=== PATIENT | male | born 1955 | race Caucasian/White ===

== ENCOUNTER 2017-06-17 15:16 | Inpatient (IN) | payer MEDICAID ==
[~2017-06-17] VITALS: Ht 172.7 cm; Wt 91.1 kg
[~2017-06-17 15:16] MED LIST: ATOR40TA PO; ATOR40TA71 PO; BUPR300T53 PO; DILT240C52 PO; EZET10TA14 PO; GABA-532 PO; LISI10TA4 PO; METF500T7 PO; METO50TA7 PO; SITA100T11 PO
[2017-06-17 15:59] LABS: HEMATOCRIT 42.5 % (42.0-52.0); HEMOGLOBIN 14.2 g/dl (14.0-17.9); MEAN CORPUSCULAR HGB CONC 33.4 % (33.0-36.5); MEAN CORPUSCULAR VOLUME 95.7 FL (78-98); PLATELET COUNT 142 X10'3 (140-440); RED BLOOD COUNT 4.44 X10'6 (4.70-6.10); RED CELL DISTRIBUTION WIDTH 16.5 % (11.5-14.5); WHITE BLOOD COUNT 15.5 X10'3 (4.5-11.0)
[2017-06-17 16:03] LABS: TOTAL CELLS COUNTED 100
[2017-06-17 16:04] LABS: ANISOCYTOSIS 1+; PLATELET ESTIMATE NORMAL; POIKILOCYTOSIS FEW; POLYCHROMASIA FEW; ROULEAUX 1+; TOXIC GRANULATION 2+; TOXIC VACUOLATION 2+
[2017-06-17] MEDS ORDERED: aspirin 300mg supp.rect RC ONE ×2 (16:45→17:10)
[2017-06-17] MEDS ORDERED: normal saline 1000ml 1,000 ML IV ONE ×2 (16:45)
[2017-06-17 16:48] LABS: INR 1.5 INR; PARTIAL THROMBOPLASTIN TIME 34 SECONDS (22-32); PROTHROMBIN TIME 15.2 SECONDS (9.0-12.0)
[2017-06-17 16:53] LABS: ALANINE AMINOTRANSFERASE 145 U/L (12-78); ALBUMIN 1.8 G/DL (3.4-5.0); ALBUMIN/GLOBULIN RATIO 0.3 (1.1-1.5); ALKALINE PHOSPHATASE 102 IU/L (46-116); ANION GAP 21 (8-16); ASPARTATE AMINO TRANSFERASE 347 U/L (10-37); BILIRUBIN,TOTAL 1.1 MG/DL (0.1-1.0); BLOOD UREA NITROGEN 133 MG/DL (7-18); BUN/CREATININE RATIO 15.7 (5.4-32.0); CALCIUM 8.7 MG/DL (8.5-10.1); CHLORIDE 103 MMOL/L (99-107); CREATININE 8.45 MG/DL (0.60-1.10); GLUCOSE 265 MG/DL (70-104); POTASSIUM 3.8 MMOL/L (3.5-5.1); SODIUM 145 MMOL/L (135-145); TOTAL CARBON DIOXIDE 21.4 MMOL/L (24-32); TOTAL PROTEIN 7.4 G/DL (6.4-8.2); eGFR 6 ML/MIN
[2017-06-17 17:04] LABS: ACETAMINOPHEN < 2.0 UG/ML (10-30); CKMB RELATIVE INDEX 0.3 RATIO (0-2.5); CREATINE KINASE 1529 U/L (39-308); ETHANOL < 0.010 GM/DL (0.0-0.010)
[2017-06-17] MEDS ORDERED: piperacillin/tazo 3.375gm/50ml 50 ML IV ONE (17:05)
[2017-06-17] MEDS ORDERED: vancomycin/NS 1 GM ADD-VANTAGE 250 ML IV ONE ×2 (17:05→17:10)
[2017-06-17] MEDS ORDERED: heparin 10,000 units/1 ML INJ IV ONE ×2 (17:10→17:45)
[2017-06-17] MEDS ORDERED: normal saline 1000ML IV soln IV ONE (17:10)
[2017-06-17] MEDS: piperacillin/tazo 3.375gm/50ml 50 ML IV ONE ×2 (17:34→19:14)
[2017-06-17] MEDS ORDERED: heparin 10,000 units/1 ML INJ IV PRN (17:45)
[2017-06-17 18:20] LABS: OCCULT BLOOD STOOL NEGATIVE (Neg)
[2017-06-17] MEDS ORDERED: normal saline 1000ML IV soln IVB ONE (18:45)
[2017-06-17] MEDS ORDERED: acetaminophen 650mg rectal suppository RC ONE (19:25)
[2017-06-17] MEDS ORDERED: potassium Cl 40MEQ/250ML bag 250 ML IV SCH (20:05)
[2017-06-17] MEDS: K, MAG and/or Phos replacement - Verify level? MC SCH (20:05)
[2017-06-17] MEDS ORDERED: potassium Cl 20 mEq SR tablet PO PRN ×2 (20:05)
[2017-06-17] MEDS ORDERED: acetaminophen 650mg rectal suppository RC PRN (20:05)
[2017-06-17] MEDS ORDERED: potassium Cl 40MEQ/250ML bag 250 ML IV PRN (20:05)
[2017-06-17] MEDS ORDERED: acetaminophen 325mg tablet PO PRN (20:05)
[2017-06-17 20:19] LABS: CLARITY,URINE CLOUDY (Clear); COLOR,URINE AMBER (Yellow); GLUCOSE, URINE NEGATIVE (Neg); KETONES,URINE NEGATIVE (Neg); LEUKOCYTE ESTERASE ,URINE NEGATIVE (Neg); NITRITES, URINE NEGATIVE (Neg); OCCULT BLOOD,URINE LARGE (Neg); PH,URINE 5.5 (4.8-8.0); PROTEIN,URINE >=300 mg/dl (Neg); UROBILINOGEN,URINE 0.2 E.U/dL (0.2-1.0)
[2017-06-17 20:20] LABS: URINE AMPHETAMINE SCREEN NEGATIVE (Neg); URINE BARBITUATE SCREEN NEGATIVE (Neg); URINE BENZODIAZEPINES SCREEN NEGATIVE (Neg); URINE CANNABINOID SCREEN POSITIVE (Neg); URINE COCAINE SCREEN NEGATIVE (Neg); URINE METHADONE SCREEN NEGATIVE (Neg); URINE OPIATE SCREEN NEGATIVE (Neg); URINE PHENCYCLIDINE SCREEN NEGATIVE (Neg)
[2017-06-17 20:23] LABS: UA COLLECTION TYPE FOLEY CATH
[2017-06-17 20:30] LABS: AMORPHOUS URATES 2+; FINE GRANULAR CAST 0-3 /LPF (NEGATIVE); WAXY CASTS,URINE 0-3 /LPF (NEGATIVE)
[2017-06-17 20:32] LABS: BACTERIA,URINE NONE SEEN /HPF (Neg); MUCUS STRANDS MODERATE /LPF (Neg); RBC,URINE 0-2 /HPF (0-2); SQUAMOUS EPITHELIAL CELL,UR NONE SEEN /LPF (FEW); WBC,URINE 0-4 /HPF (0-4)
[2017-06-17] MEDS: normal saline 1000ml 1,000 ML IV SCH ×2 (21:41→22:28)
[2017-06-17 22:00] VITALS: BP 91/49
[2017-06-17 23:00] LABS: OXYGEN SATURATION (MIXED VEN) 61.9 % (60-80); PO2 MIXED VENOUS (TEMP COR) 40.9 mmHg (35-46)
[2017-06-17] MEDS ORDERED: NORepinephrine 8mg/ 250ml NS 250 ML IV SCH (23:15)
[2017-06-17 23:20] VITALS: BP 79/47
[2017-06-17 23:22] LABS: BASOPHILS % (AUTO) 0 % (0-1); EOSINOPHILS % (AUTO) 0.3 % (0-6); HEMATOCRIT 31.1 % (42.0-52.0); HEMOGLOBIN 10.4 g/dl (14.0-17.9); LYMPHOCYTES # (AUTO) 0.3 X10'3 (1.1-4.8); LYMPHOCYTES % (AUTO) 2.5 % (21-51); MEAN CORPUSCULAR HGB CONC 33.3 % (33.0-36.5); MEAN CORPUSCULAR VOLUME 96.1 FL (78-98); MONOCYTES % (AUTO) 0.3 % (2-12); NEUTROPHILS # (AUTO) 10.1 X10'3 (1.8-7.7); NEUTROPHILS % (AUTO) 96.9 % (42-75); PLATELET COUNT 110 X10'3 (140-440); RED BLOOD COUNT 3.24 X10'6 (4.70-6.10); RED CELL DISTRIBUTION WIDTH 16.8 % (11.5-14.5); WHITE BLOOD COUNT 10.4 X10'3 (4.5-11.0)
[2017-06-17 23:28] LABS: CHLORIDE 112 MMOL/L (99-107); GLUCOSE 162 MG/DL (70-104); POTASSIUM 3.3 MMOL/L (3.5-5.1); SODIUM 146 MMOL/L (135-145)
[2017-06-17 23:29] LABS: ALANINE AMINOTRANSFERASE 624 U/L (12-78); ALBUMIN 1.3 G/DL (3.4-5.0); ALBUMIN/GLOBULIN RATIO 0.3 (1.1-1.5); ALKALINE PHOSPHATASE 175 IU/L (46-116); ANION GAP 16 (8-16); BILIRUBIN,TOTAL 1.5 MG/DL (0.1-1.0); BLOOD UREA NITROGEN 131 MG/DL (7-18); BUN/CREATININE RATIO 16.5 (5.4-32.0); CALCIUM 7.4 MG/DL (8.5-10.1); CREATININE 7.92 MG/DL (0.60-1.10); TOTAL CARBON DIOXIDE 18.5 MMOL/L (24-32); TOTAL PROTEIN 5.6 G/DL (6.4-8.2); eGFR 7 ML/MIN
[2017-06-17 23:33] LABS: CREATINE KINASE 2014 U/L (39-308)
[2017-06-17 23:41] LABS: ABG BASE EXCESS -12.7 mmol/L (-2.0-3.0); ABG HCO3 11.3 mmol/L (22.0-26.0); ABG OXYGEN SATURATION 95.9 % (95-98); ABG PCO2 (T) 24.1 mmHg (35.0-48.0); ABG PH (T) 7.301 (7.350-7.450); ABG PO2 (T) 110.8 mmHg (83-108); ALLEN'S TEST Positive; FCOHb 0.2 % (0.5-1.5); FLOW 2 L/min; FMetHb 0.3 % (0.3-1.12); FO2Hb 95.4 % (94-100); PATIENT TEMPERATURE 39.3; TOTAL HEMOGLOBIN 11.1 G/dl (14.0-18.0)
[2017-06-17 23:49] LABS: ASPARTATE AMINO TRANSFERASE 2309 U/L (10-37)
[2017-06-18] VITALS (24 sets, daily range): BP systolic 85–139; BP diastolic 47–91
[2017-06-18] MEDS ORDERED: sodium bicarbonate (8.4%) 1 mEq/ml syringe ONE ×2 (00:09→03:30)
[2017-06-18] MEDS: sodium bicarbonate (8.4%) inj. 150 MEQ in dextrose 5%-water 1,000 ML IV SCH ×4 (00:29→23:10)
[2017-06-18] MEDS ORDERED: piperacillin-tazo 2.25gm/50ml 50 ML IV ONE (01:42)
[2017-06-18] MEDS: piperacillin-tazo 2.25gm/50ml 50 ML IV SCH ×2 (01:49→07:56)
[2017-06-18 02:27] LABS: BASOPHILS % (AUTO) 0 % (0-1); EOSINOPHILS % (AUTO) 0.1 % (0-6); HEMATOCRIT 29.6 % (42.0-52.0); HEMOGLOBIN 9.9 g/dl (14.0-17.9); LYMPHOCYTES # (AUTO) 0.4 X10'3 (1.1-4.8); LYMPHOCYTES % (AUTO) 1.8 % (21-51); MEAN CORPUSCULAR HEMOGLOBIN 32.3 PG (27.0-31.0); MEAN CORPUSCULAR HGB CONC 33.4 % (33.0-36.5); MEAN CORPUSCULAR VOLUME 96.7 FL (78-98); MEAN PLATELET VOLUME 10.5 FL (7.4-10.4); MONOCYTES # (AUTO) 0.1 X10'3 (0-0.9); MONOCYTES % (AUTO) 0.5 % (2-12); NEUTROPHILS # (AUTO) 20.9 X10'3 (1.8-7.7); NEUTROPHILS % (AUTO) 97.6 % (42-75); PLATELET COUNT 116 X10'3 (140-440); RED BLOOD COUNT 3.06 X10'6 (4.70-6.10); RED CELL DISTRIBUTION WIDTH 17.1 % (11.5-14.5); WHITE BLOOD COUNT 21.4 X10'3 (4.5-11.0)
[2017-06-18 02:55] LABS: ALANINE AMINOTRANSFERASE 799 U/L (12-78); ALBUMIN 1.3 G/DL (3.4-5.0); ALBUMIN/GLOBULIN RATIO 0.3 (1.1-1.5); ALKALINE PHOSPHATASE 182 IU/L (46-116); ANION GAP 17 (8-16); BILIRUBIN,TOTAL 1.8 MG/DL (0.1-1.0); BLOOD UREA NITROGEN 134 MG/DL (7-18); BUN/CREATININE RATIO 15.9 (5.4-32.0); CALCIUM 7.3 MG/DL (8.5-10.1); CHLORIDE 114 MMOL/L (99-107); CREATININE 8.41 MG/DL (0.60-1.10); GLUCOSE 143 MG/DL (70-104); MAGNESIUM 2.2 MG/DL (1.5-2.4); PHOSPHORUS 3.5 MG/DL (2.3-4.5); POTASSIUM 3.3 MMOL/L (3.5-5.1); SODIUM 149 MMOL/L (135-145); TOTAL CARBON DIOXIDE 17.7 MMOL/L (24-32); TOTAL PROTEIN 5.5 G/DL (6.4-8.2); eGFR 6 ML/MIN
[2017-06-18 03:10] LABS: ASPARTATE AMINO TRANSFERASE 3198 U/L (10-37)
[2017-06-18] MEDS ORDERED: sodium bicarbonate (8.4%) 1 mEq/ml syringe IV ONE (03:25)
[2017-06-18] MEDS ORDERED: vancomycin/NS 1 GM ADD-VANTAGE 250 ML IV PRN (06:50)
[2017-06-18] MEDS: K, MAG and/or Phos replacement - Verify level? MC SCH (06:57)
[2017-06-18 07:03] LABS: VANCOMYCIN,RANDOM 13.5 UG/ML
[2017-06-18 07:24] LABS: ANISOCYTOSIS 2+; PLATELET ESTIMATE DECREASED; TOTAL CELLS COUNTED 100
[2017-06-18 07:25] LABS: BURR CELLS 2+; ROULEAUX 1+; TOXIC GRANULATION 3+; TOXIC VACUOLATION 2+
[2017-06-18] MEDS: pantoprazole 40 MG vial IV SCH (07:55)
[2017-06-18] MEDS: K and/or MAG REPLACEMENT MC SCH (08:00)
[2017-06-18 08:50] LABS: ALANINE AMINOTRANSFERASE 833 U/L (12-78); ALBUMIN 1.2 G/DL (3.4-5.0); ALBUMIN/GLOBULIN RATIO 0.3 (1.1-1.5); ALKALINE PHOSPHATASE 177 IU/L (46-116); ANION GAP 17 (8-16); BILIRUBIN,TOTAL 2.4 MG/DL (0.1-1.0); BLOOD UREA NITROGEN 140 MG/DL (7-18); CALCIUM 7.1 MG/DL (8.5-10.1); CHLORIDE 109 MMOL/L (99-107); CREATININE 8.22 MG/DL (0.60-1.10); GLUCOSE 236 MG/DL (70-104); POTASSIUM 3.5 MMOL/L (3.5-5.1); SODIUM 147 MMOL/L (135-145); TOTAL CARBON DIOXIDE 20.8 MMOL/L (24-32); TOTAL PROTEIN 5.5 G/DL (6.4-8.2); eGFR 7 ML/MIN
[2017-06-18 08:52] LABS: CREATINE KINASE 2482 U/L (39-308)
[2017-06-18] MEDS ORDERED: vancomycin/NS 1 GM ADD-VANTAGE 250 ML IV ONE (09:00)
[2017-06-18 09:18] LABS: ASPARTATE AMINO TRANSFERASE 3112 U/L (10-37)
[2017-06-18] MEDS ORDERED: potassium Cl 40MEQ/250ML bag 250 ML IV PRN ×2 (09:55)
[2017-06-18] MEDS ORDERED: dextrose 50%-water 50ml dispensing syringe IV PRN ×2 (09:55)
[2017-06-18] MEDS ORDERED: glucagon, human recombinant 1mg kit SUBCUT PRN (09:55)
[2017-06-18] MEDS ORDERED: potassium Cl 20 mEq SR tablet PO PRN ×2 (09:55)
[2017-06-18] MEDS ORDERED: dextrose ORAL solution 15 GM/59 ML bottle PO PRN (09:55)
[2017-06-18] MEDS ORDERED: albumin (human) 25% 100 ML IV solution IV ONE (09:55)
[2017-06-18] MEDS: normal saline 1000ml 1,000 ML IV SCH ×3 (10:12→20:47)
[2017-06-18 11:04] LABS: PARTIAL THROMBOPLASTIN TIME 84 SECONDS (22-32)
[2017-06-18 11:06] LABS: CREATININE,URINE RANDOM 143.1 MG/DL; TOTAL PROTEIN,URINE RANDOM 435.9 MG/DL
[2017-06-18] MEDS: linezolid 600mg/300ml PREMIX 300 ML IV SCH ×2 (12:56→20:15)
[2017-06-18] MEDS: insulin Lispro (HumaLOG) vial - multi-dose SQ SCH (14:48)
[2017-06-18] MEDS: albumin (human) 25% 100 ML IV solution IV SCH ×2 (17:54→23:11)
[2017-06-18 19:34] LABS: PARTIAL THROMBOPLASTIN TIME 74 SECONDS (22-32)
[2017-06-18] MEDS: Insulin Detemir pen SQ SCH (20:17)
[2017-06-19] VITALS (24 sets, daily range): BP systolic 95–135; BP diastolic 57–83
[2017-06-19] MEDS: insulin Lispro (HumaLOG) vial - multi-dose SQ SCH ×4 (01:16→21:16)
[2017-06-19 01:32] LABS: ALANINE AMINOTRANSFERASE 415 U/L (12-78); ALBUMIN/GLOBULIN RATIO 0.6 (1.1-1.5); ALKALINE PHOSPHATASE 147 IU/L (46-116); ANION GAP 12 (8-16); ASPARTATE AMINO TRANSFERASE 777 U/L (10-37); BILIRUBIN,TOTAL 3.3 MG/DL (0.1-1.0); BLOOD UREA NITROGEN 133 MG/DL (7-18); BUN/CREATININE RATIO 17.3 (5.4-32.0); CALCIUM 6.7 MG/DL (8.5-10.1); CHLORIDE 105 MMOL/L (99-107); CREATININE 7.69 MG/DL (0.60-1.10); GLUCOSE 225 MG/DL (70-104); MAGNESIUM 2.1 MG/DL (1.5-2.4); PHOSPHORUS 3.5 MG/DL (2.3-4.5); POTASSIUM 3.2 MMOL/L (3.5-5.1); SODIUM 145 MMOL/L (135-145); TOTAL CARBON DIOXIDE 28.2 MMOL/L (24-32); TOTAL PROTEIN 5.3 G/DL (6.4-8.2); VANCOMYCIN,RANDOM 24.7 UG/ML; eGFR 7 ML/MIN
[2017-06-19 02:10] LABS: BASOPHILS % (AUTO) 0 % (0-1); EOSINOPHILS # (AUTO) 0.1 X10'3 (0-0.9); EOSINOPHILS % (AUTO) 0.6 % (0-6); HEMATOCRIT 25.2 % (42.0-52.0); HEMOGLOBIN 8.6 g/dl (14.0-17.9); LYMPHOCYTES # (AUTO) 0.9 X10'3 (1.1-4.8); LYMPHOCYTES % (AUTO) 5.3 % (21-51); MEAN CORPUSCULAR HEMOGLOBIN 32.5 PG (27.0-31.0); MEAN CORPUSCULAR HGB CONC 34.1 % (33.0-36.5); MEAN CORPUSCULAR VOLUME 95.4 FL (78-98); MEAN PLATELET VOLUME 10.4 FL (7.4-10.4); MONOCYTES # (AUTO) 0.1 X10'3 (0-0.9); MONOCYTES % (AUTO) 0.6 % (2-12); NEUTROPHILS # (AUTO) 15.8 X10'3 (1.8-7.7); NEUTROPHILS % (AUTO) 93.5 % (42-75); PLATELET COUNT 81 X10'3 (140-440); RED BLOOD COUNT 2.64 X10'6 (4.70-6.10); RED CELL DISTRIBUTION WIDTH 16.7 % (11.5-14.5); WHITE BLOOD COUNT 16.9 X10'3 (4.5-11.0)
[2017-06-19] MEDS: normal saline 1000ml 1,000 ML IV SCH ×3 (02:10→20:04)
[2017-06-19] MEDS ORDERED: potassium Cl 40MEQ/250ML bag 250 ML IV ONE (02:50)
[2017-06-19] MEDS ORDERED: VANCOMYCIN LEVEL IV SCH (03:00)
[2017-06-19 07:47] LABS: BANDS% (MANUAL) 16 % (0-10); LYMPHOCYTES % (MANUAL) 5 % (21-51); MONOCYTES % (MANUAL) 1 % (2-12); NEUTROPHILS % (MANUAL) 78 % (42-75); TOTAL CELLS COUNTED 100
[2017-06-19 07:48] LABS: ANISOCYTOSIS 1+; LARGE PLATELETS FEW; PLATELET ESTIMATE DECREASED; TOXIC GRANULATION 1+
[2017-06-19] MEDS: K, MAG and/or Phos replacement - Verify level? MC SCH (08:00)
[2017-06-19] MEDS: K and/or MAG REPLACEMENT MC SCH (08:00)
[2017-06-19] MEDS: linezolid 600mg/300ml PREMIX 300 ML IV SCH (08:10)
[2017-06-19] MEDS: pantoprazole 40 MG vial IV SCH (08:10)
[2017-06-19] MEDS: albumin (human) 25% 100 ML IV solution IV SCH (08:11)
[2017-06-19] MEDS: sodium bicarbonate (8.4%) inj. 150 MEQ in dextrose 5%-water 1,000 ML IV SCH ×3 (08:14→21:43)
[2017-06-19] MEDS ORDERED: mannitol 20% 250ml solution IV ONE (11:25)
[2017-06-19] MEDS ORDERED: epoetin 20,000 units/ml inj IV ONE (11:25)
[2017-06-19] MEDS ORDERED: heparin 1,000unit/ml 10ml vial 10 ML IV ONE (11:25)
[2017-06-19] MEDS ORDERED: normal saline 1000ml 250 ML IV PRN (11:25)
[2017-06-19] MEDS ORDERED: albumin (human) 25% 100ml IV 100 ML IV PRN (11:25)
[2017-06-19] MEDS ORDERED: heparin 1,000 units/ml 10ml inj HE ONE ×2 (11:30)
[2017-06-19] MEDS ORDERED: MANNITOL 20% IV ONE (11:50)
[2017-06-19] MEDS: gabapentin 300mg capsule PO SCH ×2 (12:24→20:05)
[2017-06-19] MEDS: piperacillin-tazo 2.25gm/50ml 50 ML IV SCH ×2 (12:35→20:04)
[2017-06-19] MEDS ORDERED: gelatin sponge, absorbable (Gelfoam 100) sponge TP ONE (17:25)
[2017-06-19] MEDS: Insulin Detemir pen SQ SCH (21:14)
[2017-06-20] VITALS (25 sets, daily range): BP systolic 84–157; BP diastolic 28–82
[2017-06-20 02:03] LABS: BASOPHILS % (AUTO) 0.2 % (0-1); EOSINOPHILS # (AUTO) 0.1 X10'3 (0-0.9); EOSINOPHILS % (AUTO) 0.8 % (0-6); HEMATOCRIT 26.4 % (42.0-52.0); HEMOGLOBIN 8.8 g/dl (14.0-17.9); LYMPHOCYTES % (AUTO) 7.3 % (21-51); MEAN CORPUSCULAR HEMOGLOBIN 32.1 PG (27.0-31.0); MEAN CORPUSCULAR HGB CONC 33.3 % (33.0-36.5); MEAN CORPUSCULAR VOLUME 96.1 FL (78-98); MEAN PLATELET VOLUME 11.2 FL (7.4-10.4); MONOCYTES # (AUTO) 0.1 X10'3 (0-0.9); NEUTROPHILS # (AUTO) 12.5 X10'3 (1.8-7.7); NEUTROPHILS % (AUTO) 90.7 % (42-75); PLATELET COUNT 73 X10'3 (140-440); RED BLOOD COUNT 2.75 X10'6 (4.70-6.10); RED CELL DISTRIBUTION WIDTH 16.5 % (11.5-14.5); WHITE BLOOD COUNT 13.8 X10'3 (4.5-11.0)
[2017-06-20 02:20] LABS: ALANINE AMINOTRANSFERASE 280 U/L (12-78); ALBUMIN 1.6 G/DL (3.4-5.0); ALBUMIN/GLOBULIN RATIO 0.4 (1.1-1.5); ALKALINE PHOSPHATASE 256 IU/L (46-116); ANION GAP 6 (8-16); ASPARTATE AMINO TRANSFERASE 333 U/L (10-37); BLOOD UREA NITROGEN 79 MG/DL (7-18); BUN/CREATININE RATIO 15.4 (5.4-32.0); CALCIUM 6.7 MG/DL (8.5-10.1); CHLORIDE 103 MMOL/L (99-107); CREATININE 5.13 MG/DL (0.60-1.10); GLUCOSE 126 MG/DL (70-104); MAGNESIUM 1.9 MG/DL (1.5-2.4); PHOSPHORUS 1.7 MG/DL (2.3-4.5); POTASSIUM 3.4 MMOL/L (3.5-5.1); SODIUM 142 MMOL/L (135-145); TOTAL CARBON DIOXIDE 33.3 MMOL/L (24-32); TOTAL PROTEIN 5.2 G/DL (6.4-8.2); VANCOMYCIN,RANDOM 16.6 UG/ML; eGFR 11 ML/MIN
[2017-06-20] MEDS: piperacillin-tazo 2.25gm/50ml 50 ML IV SCH ×4 (02:25→19:51)
[2017-06-20 03:09] LABS: ANISOCYTOSIS 1+; LARGE PLATELETS FEW; PLATELET ESTIMATE DECREASED; TOTAL CELLS COUNTED 100; TOXIC GRANULATION 1+
[2017-06-20] MEDS: normal saline 1000ml 1,000 ML IV SCH (03:36)
[2017-06-20] MEDS: sodium bicarbonate (8.4%) inj. 150 MEQ in dextrose 5%-water 1,000 ML IV SCH (05:16)
[2017-06-20] MEDS ORDERED: potassium Cl 40MEQ/250ML bag 250 ML IV ONE (05:19)
[2017-06-20] MEDS ORDERED: potassium Cl 20 mEq/100mL bag IV ONE (05:50)
[2017-06-20] MEDS ORDERED: lisinopril 10 MG tablet PO SCH (08:00)
[2017-06-20] MEDS: K and/or MAG REPLACEMENT MC SCH (08:00)
[2017-06-20] MEDS: K, MAG and/or Phos replacement - Verify level? MC SCH (08:00)
[2017-06-20] MEDS: sodium chloride 0.45% 1,000 ML IV SCH (08:11)
[2017-06-20] MEDS: pantoprazole 40 MG vial IV SCH (08:12)
[2017-06-20] MEDS: buPROPion SR 150mg tablet PO SCH (08:16)
[2017-06-20] MEDS: metoprolol succinate 25mg (24-HOUR) SR. Tablet PO SCH (08:18)
[2017-06-20] MEDS: ezetimibe 10mg tablet PO SCH (08:18)
[2017-06-20] MEDS: diltiazem CD 120mg capsule (once-daily) PO SCH (08:31)
[2017-06-20] MEDS: gabapentin 300mg capsule PO SCH ×2 (08:31→12:54)
[2017-06-20] MEDS: atorvastatin 20mg tablet PO SCH (08:31)
[2017-06-20] MEDS: LACTOBACILLUS RHAMNOSUS GG 15 billion unit sprinkle caps PO SCH (08:31)
[2017-06-20] MEDS: HYDROmorphone 1 mg/ml syringe IV PRN ×2 (08:59→23:02)
[2017-06-20] MEDS ORDERED: epoetin 20,000 units/ml inj IV ONE (09:00)
[2017-06-20] MEDS ORDERED: albumin (human) 25% 100ml IV 100 ML IV PRN (09:00)
[2017-06-20] MEDS ORDERED: heparin 1,000 units/ml 10ml inj HE ONE ×2 (09:05)
[2017-06-20 14:06] LABS: BASOPHILS % (AUTO) 0.1 % (0-1); EOSINOPHILS # (AUTO) 0.4 X10'3 (0-0.9); EOSINOPHILS % (AUTO) 3.2 % (0-6); HEMATOCRIT 26.8 % (42.0-52.0); LYMPHOCYTES # (AUTO) 1.3 X10'3 (1.1-4.8); LYMPHOCYTES % (AUTO) 10.2 % (21-51); MEAN CORPUSCULAR HEMOGLOBIN 32.2 PG (27.0-31.0); MEAN CORPUSCULAR HGB CONC 33.7 % (33.0-36.5); MEAN CORPUSCULAR VOLUME 95.6 FL (78-98); MEAN PLATELET VOLUME 10.5 FL (7.4-10.4); MONOCYTES # (AUTO) 0.1 X10'3 (0-0.9); MONOCYTES % (AUTO) 0.6 % (2-12); NEUTROPHILS # (AUTO) 10.7 X10'3 (1.8-7.7); NEUTROPHILS % (AUTO) 85.9 % (42-75); PLATELET COUNT 66 X10'3 (140-440); RED CELL DISTRIBUTION WIDTH 16.3 % (11.5-14.5); WHITE BLOOD COUNT 12.5 X10'3 (4.5-11.0)
[2017-06-20 14:27] LABS: ALBUMIN 1.5 G/DL (3.4-5.0); ANION GAP 2 (8-16); BLOOD UREA NITROGEN 39 MG/DL (7-18); CALCIUM 6.9 MG/DL (8.5-10.1); CHLORIDE 102 MMOL/L (99-107); GLUCOSE 101 MG/DL (70-104); POTASSIUM 4.4 MMOL/L (3.5-5.1); SODIUM 138 MMOL/L (135-145); TOTAL CARBON DIOXIDE 33.7 MMOL/L (24-32); eGFR 21 ML/MIN
[2017-06-20 14:31] LABS: TROPONIN I 0.35 NG/ML (0.0-0.05)
[2017-06-20] MEDS ORDERED: albumin (human) 25% 100 ML IV solution IV ONE (16:30)
[2017-06-20] MEDS: Insulin Detemir pen SQ SCH (21:00)
[2017-06-21] VITALS (30 sets, daily range): BP systolic 92–157; BP diastolic 53–83
[2017-06-21] MEDS: sodium chloride 0.45% 1,000 ML IV SCH ×3 (00:35→12:17)
[2017-06-21] MEDS: dextrose ORAL solution 15 GM/59 ML bottle PO PRN (02:25)
[2017-06-21 03:00] LABS: BASOPHILS % (AUTO) 0.1 % (0-1); EOSINOPHILS # (AUTO) 0.1 X10'3 (0-0.9); EOSINOPHILS % (AUTO) 1.1 % (0-6); HEMOGLOBIN 7.3 g/dl (14.0-17.9); LYMPHOCYTES # (AUTO) 1.2 X10'3 (1.1-4.8); LYMPHOCYTES % (AUTO) 13.1 % (21-51); MEAN CORPUSCULAR HEMOGLOBIN 32.1 PG (27.0-31.0); MEAN CORPUSCULAR HGB CONC 33.4 % (33.0-36.5); MEAN CORPUSCULAR VOLUME 96.2 FL (78-98); MEAN PLATELET VOLUME 11.1 FL (7.4-10.4); MONOCYTES # (AUTO) 0.1 X10'3 (0-0.9); MONOCYTES % (AUTO) 1.3 % (2-12); NEUTROPHILS # (AUTO) 7.9 X10'3 (1.8-7.7); NEUTROPHILS % (AUTO) 84.4 % (42-75); PLATELET COUNT 59 X10'3 (140-440); RED BLOOD COUNT 2.27 X10'6 (4.70-6.10); RED CELL DISTRIBUTION WIDTH 16.9 % (11.5-14.5); WHITE BLOOD COUNT 9.4 X10'3 (4.5-11.0)
[2017-06-21 03:27] LABS: HEMATOCRIT 21.8 % (42.0-52.0)
[2017-06-21 03:33] LABS: LARGE PLATELETS FEW; PLATELET ESTIMATE DECREASED
[2017-06-21 03:37] LABS: ALANINE AMINOTRANSFERASE 145 U/L (12-78); ALBUMIN 1.7 G/DL (3.4-5.0); ALBUMIN/GLOBULIN RATIO 0.5 (1.1-1.5); ALKALINE PHOSPHATASE 218 IU/L (46-116); ANION GAP 8 (8-16); ASPARTATE AMINO TRANSFERASE 113 U/L (10-37); BILIRUBIN,TOTAL 2.3 MG/DL (0.1-1.0); BLOOD UREA NITROGEN 52 MG/DL (7-18); CALCIUM 7.1 MG/DL (8.5-10.1); CHLORIDE 100 MMOL/L (99-107); GLUCOSE 156 MG/DL (70-104); MAGNESIUM 1.9 MG/DL (1.5-2.4); PHOSPHORUS 2.7 MG/DL (2.3-4.5); POTASSIUM 4.2 MMOL/L (3.5-5.1); SODIUM 137 MMOL/L (135-145); TOTAL CARBON DIOXIDE 29.3 MMOL/L (24-32); TOTAL PROTEIN 5.1 G/DL (6.4-8.2); VANCOMYCIN,RANDOM 11.1 UG/ML; eGFR 15 ML/MIN
[2017-06-21] MEDS: piperacillin-tazo 2.25gm/50ml 50 ML IV SCH ×4 (03:52→22:38)
[2017-06-21] MEDS: K and/or MAG REPLACEMENT MC SCH (06:53)
[2017-06-21] MEDS: K, MAG and/or Phos replacement - Verify level? MC SCH (06:54)
[2017-06-21] MEDS: diltiazem CD 120mg capsule (once-daily) PO SCH (08:00)
[2017-06-21] MEDS: metoprolol succinate 25mg (24-HOUR) SR. Tablet PO SCH (08:00)
[2017-06-21] MEDS: buPROPion SR 150mg tablet PO SCH (08:50)
[2017-06-21] MEDS: gabapentin 100mg capsule PO SCH (08:51)
[2017-06-21] MEDS: atorvastatin 20mg tablet PO SCH (08:51)
[2017-06-21] MEDS: pantoprazole 40mg Tablet.DR PO SCH (08:51)
[2017-06-21] MEDS: ezetimibe 10mg tablet PO SCH (08:51)
[2017-06-21] MEDS: LACTOBACILLUS RHAMNOSUS GG 15 billion unit sprinkle caps PO SCH (08:53)
[2017-06-21 11:16] LABS: HBSAG SCREEN Negative (Negative)
[2017-06-21] MEDS: HYDROmorphone 1 mg/ml syringe IV PRN (11:37)
[2017-06-21] MEDS: insulin Lispro (HumaLOG) vial - multi-dose SQ SCH (14:49)
[2017-06-21] MEDS: Insulin Detemir pen SQ SCH (21:00)
[2017-06-22] VITALS (23 sets, daily range): BP systolic 112–155; BP diastolic 59–79
[2017-06-22] MEDS: HYDROmorphone 1 mg/ml syringe IV PRN (01:14)
[2017-06-22] MEDS: sodium chloride 0.45% 1,000 ML IV SCH (01:14)
[2017-06-22] MEDS: piperacillin-tazo 2.25gm/50ml 50 ML IV SCH ×4 (03:32→20:19)
[2017-06-22 03:51] LABS: BASOPHILS # (AUTO) 0.1 X10'3 (0-0.2); BASOPHILS % (AUTO) 0.7 % (0-1); EOSINOPHILS # (AUTO) 0.2 X10'3 (0-0.9); EOSINOPHILS % (AUTO) 2.3 % (0-6); HEMATOCRIT 27.4 % (42.0-52.0); HEMOGLOBIN 9.3 g/dl (14.0-17.9); LYMPHOCYTES # (AUTO) 0.8 X10'3 (1.1-4.8); LYMPHOCYTES % (AUTO) 8.8 % (21-51); MEAN CORPUSCULAR HEMOGLOBIN 31.9 PG (27.0-31.0); MEAN CORPUSCULAR HGB CONC 33.8 % (33.0-36.5); MEAN CORPUSCULAR VOLUME 94.5 FL (78-98); MEAN PLATELET VOLUME 10.7 FL (7.4-10.4); MONOCYTES # (AUTO) 0.1 X10'3 (0-0.9); MONOCYTES % (AUTO) 0.6 % (2-12); NEUTROPHILS # (AUTO) 8.3 X10'3 (1.8-7.7); NEUTROPHILS % (AUTO) 87.6 % (42-75); PLATELET COUNT 84 X10'3 (140-440); RED CELL DISTRIBUTION WIDTH 16.5 % (11.5-14.5); WHITE BLOOD COUNT 9.5 X10'3 (4.5-11.0)
[2017-06-22 03:53] LABS: ALANINE AMINOTRANSFERASE 110 U/L (12-78); ALBUMIN 1.5 G/DL (3.4-5.0); ALBUMIN/GLOBULIN RATIO 0.3 (1.1-1.5); ALKALINE PHOSPHATASE 225 IU/L (46-116); ANION GAP 10 (8-16); ASPARTATE AMINO TRANSFERASE 62 U/L (10-37); BILIRUBIN,TOTAL 1.4 MG/DL (0.1-1.0); BLOOD UREA NITROGEN 65 MG/DL (7-18); CALCIUM 7.6 MG/DL (8.5-10.1); CHLORIDE 99 MMOL/L (99-107); GLUCOSE 163 MG/DL (70-104); MAGNESIUM 1.9 MG/DL (1.5-2.4); PHOSPHORUS 4.4 MG/DL (2.3-4.5); POTASSIUM 4.6 MMOL/L (3.5-5.1); SODIUM 135 MMOL/L (135-145); TOTAL CARBON DIOXIDE 26.2 MMOL/L (24-32); TOTAL PROTEIN 5.8 G/DL (6.4-8.2); VANCOMYCIN,RANDOM 9.8 UG/ML; eGFR 12 ML/MIN
[2017-06-22] MEDS: LACTOBACILLUS RHAMNOSUS GG 15 billion unit sprinkle caps PO SCH (07:51)
[2017-06-22] MEDS: gabapentin 100mg capsule PO SCH (07:52)
[2017-06-22] MEDS: ezetimibe 10mg tablet PO SCH (07:52)
[2017-06-22] MEDS: diltiazem CD 120mg capsule (once-daily) PO SCH (07:52)
[2017-06-22] MEDS: K and/or MAG REPLACEMENT MC SCH (07:54)
[2017-06-22] MEDS ORDERED: albumin (human) 25% 100ml IV 100 ML IV PRN (08:00)
[2017-06-22] MEDS: buPROPion SR 150mg tablet PO SCH (08:00)
[2017-06-22] MEDS ORDERED: heparin 1,000unit/ml 10ml vial 10 ML IV ONE (08:00)
[2017-06-22] MEDS: pantoprazole 40mg Tablet.DR PO SCH (08:00)
[2017-06-22] MEDS ORDERED: epoetin 20,000 units/ml inj IV ONE (08:00)
[2017-06-22] MEDS: atorvastatin 20mg tablet PO SCH (08:00)
[2017-06-22] MEDS ORDERED: heparin 1,000 units/ml 10ml inj HE ONE ×2 (08:00)
[2017-06-22] MEDS ORDERED: heparin 1,000 units/ml 10ml inj IV ONE (08:00)
[2017-06-22] MEDS: K, MAG and/or Phos replacement - Verify level? MC SCH (08:00)
[2017-06-22] MEDS: metoprolol succinate 25mg (24-HOUR) SR. Tablet PO SCH (08:03)
[2017-06-22] MEDS: Insulin Detemir pen SQ SCH (20:20)
[2017-06-23] VITALS (25 sets, daily range): BP systolic 75–139; BP diastolic 40–75
[2017-06-23] MEDS: piperacillin-tazo 2.25gm/50ml 50 ML IV SCH ×4 (02:13→21:15)
[2017-06-23] MEDS: HYDROmorphone 1 mg/ml syringe IV PRN (02:15)
[2017-06-23 06:49] LABS: ALANINE AMINOTRANSFERASE 78 U/L (12-78); ALBUMIN 1.3 G/DL (3.4-5.0); ALBUMIN/GLOBULIN RATIO 0.3 (1.1-1.5); ALKALINE PHOSPHATASE 207 IU/L (46-116); ANION GAP 12 (8-16); ASPARTATE AMINO TRANSFERASE 40 U/L (10-37); BLOOD UREA NITROGEN 36 MG/DL (7-18); BUN/CREATININE RATIO 9.5 (5.4-32.0); CALCIUM 7.4 MG/DL (8.5-10.1); CHLORIDE 100 MMOL/L (99-107); GLUCOSE 140 MG/DL (70-104); MAGNESIUM 1.8 MG/DL (1.5-2.4); PHOSPHORUS 4.1 MG/DL (2.3-4.5); POTASSIUM 4.2 MMOL/L (3.5-5.1); SODIUM 139 MMOL/L (135-145); TOTAL CARBON DIOXIDE 26.8 MMOL/L (24-32); TOTAL PROTEIN 5.8 G/DL (6.4-8.2); VANCOMYCIN,RANDOM 7.7 UG/ML; eGFR 16 ML/MIN
[2017-06-23 07:21] LABS: BASOPHILS # (AUTO) 0.1 X10'3 (0-0.2); BASOPHILS % (AUTO) 1.1 % (0-1); EOSINOPHILS % (AUTO) 0.6 % (0-6); HEMATOCRIT 24.5 % (42.0-52.0); HEMOGLOBIN 8.7 g/dl (14.0-17.9); LYMPHOCYTES # (AUTO) 0.9 X10'3 (1.1-4.8); LYMPHOCYTES % (AUTO) 12.5 % (21-51); MEAN CORPUSCULAR HEMOGLOBIN 33.2 PG (27.0-31.0); MEAN CORPUSCULAR HGB CONC 35.4 % (33.0-36.5); MEAN CORPUSCULAR VOLUME 93.7 FL (78-98); MEAN PLATELET VOLUME 9.8 FL (7.4-10.4); MONOCYTES # (AUTO) 0.1 X10'3 (0-0.9); MONOCYTES % (AUTO) 1.1 % (2-12); NEUTROPHILS # (AUTO) 6.1 X10'3 (1.8-7.7); NEUTROPHILS % (AUTO) 84.7 % (42-75); PLATELET COUNT 99 X10'3 (140-440); RED BLOOD COUNT 2.61 X10'6 (4.70-6.10); RED CELL DISTRIBUTION WIDTH 15.2 % (11.5-14.5); WHITE BLOOD COUNT 7.2 X10'3 (4.5-11.0)
[2017-06-23] MEDS: LACTOBACILLUS RHAMNOSUS GG 15 billion unit sprinkle caps PO SCH (07:27)
[2017-06-23] MEDS: metoprolol succinate 25mg (24-HOUR) SR. Tablet PO SCH (07:40)
[2017-06-23] MEDS: buPROPion SR 150mg tablet PO SCH (07:40)
[2017-06-23] MEDS: diltiazem CD 120mg capsule (once-daily) PO SCH (07:41)
[2017-06-23] MEDS: atorvastatin 20mg tablet PO SCH (07:41)
[2017-06-23] MEDS: gabapentin 100mg capsule PO SCH (07:41)
[2017-06-23] MEDS: pantoprazole 40mg Tablet.DR PO SCH (07:41)
[2017-06-23] MEDS: ezetimibe 10mg tablet PO SCH (07:42)
[2017-06-23 07:51] LABS: TOTAL CELLS COUNTED 100
[2017-06-23 07:53] LABS: ANISOCYTOSIS 1+; PLATELET ESTIMATE DECREASED; POLYCHROMASIA 1+; TOXIC GRANULATION 3+
[2017-06-23] MEDS ORDERED: dexamethasone 4mg/ml inj ONE (12:01)
[2017-06-23] MEDS ORDERED: cloNIDine hcl/PF 100mcg/ml inj ONE (12:01)
[2017-06-23] MEDS ORDERED: desflurane 240ml liquid inh. IH ONE (12:01)
[2017-06-23] MEDS ORDERED: midazolam 2 mg/2 ml injection ONE (12:10)
[2017-06-23] MEDS ORDERED: LIDOcaine 2% (20mg/ml) 5ml vial ONE (12:44)
[2017-06-23] MEDS ORDERED: propofol inj 20 ML IV ONE (12:44)
[2017-06-23] MEDS ORDERED: BUPIVAcaine/PF 2.5 mg/ml (0.25%) 30ml vial ONE ×2 (13:51)
[2017-06-23] MEDS ORDERED: normal saline 1000ml 1,000 ML IV ONE (13:58)
[2017-06-23] MEDS ORDERED: fentaNYL/PF 50MCG/1 ML 2ML syringe IV PRN (14:00)
[2017-06-23] MEDS ORDERED: ondansetron/PF 4mg/2ml inj IV PRN (14:00)
[2017-06-23] MEDS ORDERED: proCHLORperazine 10 MG/2 ml inj IV PRN (14:00)
[2017-06-23] MEDS ORDERED: meperidine/PF 25mg/ml syringe IV ONE (14:00)
[2017-06-23] MEDS: Insulin Detemir pen SQ SCH (21:00)
[2017-06-24] VITALS (24 sets, daily range): BP systolic 75–171; BP diastolic 47–93
[2017-06-24] MEDS: piperacillin-tazo 2.25gm/50ml 50 ML IV SCH ×4 (01:47→21:07)
[2017-06-24 05:08] LABS: BASOPHILS % (AUTO) 0.5 % (0-1); EOSINOPHILS # (AUTO) 0.1 X10'3 (0-0.9); EOSINOPHILS % (AUTO) 1.2 % (0-6); HEMATOCRIT 24.8 % (42.0-52.0); HEMOGLOBIN 8.3 g/dl (14.0-17.9); LYMPHOCYTES # (AUTO) 0.5 X10'3 (1.1-4.8); LYMPHOCYTES % (AUTO) 6.9 % (21-51); MEAN CORPUSCULAR HEMOGLOBIN 32.2 PG (27.0-31.0); MEAN CORPUSCULAR HGB CONC 33.6 % (33.0-36.5); MEAN CORPUSCULAR VOLUME 95.8 FL (78-98); MEAN PLATELET VOLUME 10.7 FL (7.4-10.4); MONOCYTES # (AUTO) 0.1 X10'3 (0-0.9); MONOCYTES % (AUTO) 1.3 % (2-12); NEUTROPHILS # (AUTO) 6.6 X10'3 (1.8-7.7); NEUTROPHILS % (AUTO) 90.1 % (42-75); PLATELET COUNT 134 X10'3 (140-440); RED BLOOD COUNT 2.58 X10'6 (4.70-6.10); RED CELL DISTRIBUTION WIDTH 16.2 % (11.5-14.5); WHITE BLOOD COUNT 7.3 X10'3 (4.5-11.0)
[2017-06-24] MEDS ORDERED: DOPamine 400mg/D5W 250ml 250 ML IV SCH (06:30)
[2017-06-24] MEDS ORDERED: DOPamine 400mg/D5W 250ml 250 ML IV ONE (06:33)
[2017-06-24 07:02] LABS: LARGE PLATELETS FEW; PLATELET ESTIMATE DECREASED
[2017-06-24 07:10] LABS: ALANINE AMINOTRANSFERASE 64 U/L (12-78); ALBUMIN 1.4 G/DL (3.4-5.0); ALBUMIN/GLOBULIN RATIO 0.3 (1.1-1.5); ALKALINE PHOSPHATASE 168 IU/L (46-116); ANION GAP 18 (8-16); ASPARTATE AMINO TRANSFERASE 36 U/L (10-37); BILIRUBIN,TOTAL 0.9 MG/DL (0.1-1.0); BLOOD UREA NITROGEN 54 MG/DL (7-18); BUN/CREATININE RATIO 10.2 (5.4-32.0); CALCIUM 7.5 MG/DL (8.5-10.1); CHLORIDE 98 MMOL/L (99-107); GLUCOSE 262 MG/DL (70-104); MAGNESIUM 2.2 MG/DL (1.5-2.4); PHOSPHORUS 8.1 MG/DL (2.3-4.5); POTASSIUM 5.5 MMOL/L (3.5-5.1); SODIUM 136 MMOL/L (135-145); TOTAL CARBON DIOXIDE 19.7 MMOL/L (24-32); TOTAL PROTEIN 6.1 G/DL (6.4-8.2); eGFR 11 ML/MIN
[2017-06-24] MEDS ORDERED: heparin 1,000unit/ml 10ml vial 10 ML IV ONE (08:22)
[2017-06-24] MEDS: LACTOBACILLUS RHAMNOSUS GG 15 billion unit sprinkle caps PO SCH (08:24)
[2017-06-24] MEDS: pantoprazole 40mg Tablet.DR PO SCH (08:24)
[2017-06-24] MEDS: atorvastatin 20mg tablet PO SCH (08:24)
[2017-06-24] MEDS: gabapentin 100mg capsule PO SCH (08:24)
[2017-06-24] MEDS: buPROPion SR 150mg tablet PO SCH (08:24)
[2017-06-24] MEDS ORDERED: epoetin 20,000 units/ml inj IV ONE (08:25)
[2017-06-24] MEDS ORDERED: albumin (human) 25% 100ml IV 100 ML IV PRN (08:25)
[2017-06-24] MEDS ORDERED: heparin 1,000 units/ml 10ml inj IV ONE (08:25)
[2017-06-24] MEDS ORDERED: HYDROmorphone inj. 0.5 MG/0.5 ML DISP.SYRIN ONE (08:26)
[2017-06-24] MEDS: HYDROmorphone 1 mg/ml syringe IV PRN ×2 (08:27→15:23)
[2017-06-24] MEDS ORDERED: heparin 1,000 units/ml 10ml inj HE ONE ×2 (08:30)
[2017-06-24] MEDS: ezetimibe 10mg tablet PO SCH (08:36)
[2017-06-24] MEDS: insulin Lispro (HumaLOG) vial - multi-dose SQ SCH ×2 (08:56→15:23)
[2017-06-24] MEDS: DOPamine 400mg/D5W 250ml 250 ML IV PRN (21:08)
[2017-06-24] MEDS: Insulin Detemir pen SQ SCH (21:33)
[2017-06-25] VITALS (27 sets, daily range): BP systolic 93–153; BP diastolic 51–97
[2017-06-25] MEDS: HYDROmorphone 1 mg/ml syringe IV PRN (01:27)
[2017-06-25] MEDS: piperacillin-tazo 2.25gm/50ml 50 ML IV SCH ×4 (01:27→20:38)
[2017-06-25 05:42] LABS: BASOPHILS % (AUTO) 0.3 % (0-1); EOSINOPHILS # (AUTO) 0.1 X10'3 (0-0.9); EOSINOPHILS % (AUTO) 1.8 % (0-6); HEMATOCRIT 28.4 % (42.0-52.0); HEMOGLOBIN 9.5 g/dl (14.0-17.9); LYMPHOCYTES # (AUTO) 0.7 X10'3 (1.1-4.8); LYMPHOCYTES % (AUTO) 8.4 % (21-51); MEAN CORPUSCULAR HGB CONC 33.4 % (33.0-36.5); MEAN CORPUSCULAR VOLUME 95.8 FL (78-98); MEAN PLATELET VOLUME 9.8 FL (7.4-10.4); MONOCYTES # (AUTO) 0.2 X10'3 (0-0.9); MONOCYTES % (AUTO) 2.8 % (2-12); NEUTROPHILS # (AUTO) 7.1 X10'3 (1.8-7.7); NEUTROPHILS % (AUTO) 86.7 % (42-75); PLATELET COUNT 178 X10'3 (140-440); RED BLOOD COUNT 2.96 X10'6 (4.70-6.10); RED CELL DISTRIBUTION WIDTH 15.5 % (11.5-14.5); WHITE BLOOD COUNT 8.2 X10'3 (4.5-11.0)
[2017-06-25 06:03] LABS: ALANINE AMINOTRANSFERASE 61 U/L (12-78); ALBUMIN 1.4 G/DL (3.4-5.0); ALBUMIN/GLOBULIN RATIO 0.3 (1.1-1.5); ALKALINE PHOSPHATASE 160 IU/L (46-116); ANION GAP 9 (8-16); ASPARTATE AMINO TRANSFERASE 37 U/L (10-37); BILIRUBIN,TOTAL 0.7 MG/DL (0.1-1.0); BLOOD UREA NITROGEN 31 MG/DL (7-18); BUN/CREATININE RATIO 9.1 (5.4-32.0); CALCIUM 7.3 MG/DL (8.5-10.1); CHLORIDE 101 MMOL/L (99-107); GLUCOSE 250 MG/DL (70-104); MAGNESIUM 1.9 MG/DL (1.5-2.4); PHOSPHORUS 4.7 MG/DL (2.3-4.5); POTASSIUM 3.9 MMOL/L (3.5-5.1); SODIUM 138 MMOL/L (135-145); TOTAL CARBON DIOXIDE 28.3 MMOL/L (24-32); TOTAL PROTEIN 6.2 G/DL (6.4-8.2); eGFR 18 ML/MIN
[2017-06-25] MEDS: LACTOBACILLUS RHAMNOSUS GG 15 billion unit sprinkle caps PO SCH (08:11)
[2017-06-25] MEDS: pantoprazole 40mg Tablet.DR PO SCH (08:11)
[2017-06-25] MEDS: ezetimibe 10mg tablet PO SCH (08:12)
[2017-06-25] MEDS: atorvastatin 20mg tablet PO SCH (08:12)
[2017-06-25] MEDS: buPROPion SR 150mg tablet PO SCH (08:12)
[2017-06-25] MEDS: gabapentin 100mg capsule PO SCH (08:12)
[2017-06-25] MEDS: insulin Lispro (HumaLOG) vial - multi-dose SQ SCH ×3 (09:14→18:58)
[2017-06-25] MEDS ORDERED: HYDROmorphone inj. 0.5 MG/0.5 ML DISP.SYRIN ONE (10:51)
[2017-06-25] MEDS: ondansetron/PF 4mg/2ml inj IV PRN (16:10)
[2017-06-25] MEDS: Insulin Detemir pen SQ SCH (20:50)
[2017-06-25] MEDS: acetaminophen 325mg tablet PO PRN (22:03)
[2017-06-26] VITALS (14 sets, daily range): BP systolic 109–145; BP diastolic 64–91
[2017-06-26] MEDS: DOPamine 400mg/D5W 250ml 250 ML IV PRN (02:02)
[2017-06-26] MEDS: piperacillin-tazo 2.25gm/50ml 50 ML IV SCH (02:11)
[2017-06-26 02:45] LABS: BASOPHILS % (AUTO) 0.3 % (0-1); EOSINOPHILS # (AUTO) 0.1 X10'3 (0-0.9); HEMATOCRIT 26.2 % (42.0-52.0); HEMOGLOBIN 8.8 g/dl (14.0-17.9); LYMPHOCYTES % (AUTO) 14.5 % (21-51); MEAN CORPUSCULAR HGB CONC 33.5 % (33.0-36.5); MEAN CORPUSCULAR VOLUME 95.8 FL (78-98); MONOCYTES # (AUTO) 0.2 X10'3 (0-0.9); MONOCYTES % (AUTO) 3.4 % (2-12); NEUTROPHILS # (AUTO) 5.6 X10'3 (1.8-7.7); NEUTROPHILS % (AUTO) 79.8 % (42-75); PLATELET COUNT 172 X10'3 (140-440); RED BLOOD COUNT 2.73 X10'6 (4.70-6.10); RED CELL DISTRIBUTION WIDTH 16.5 % (11.5-14.5)
[2017-06-26 03:03] LABS: ALANINE AMINOTRANSFERASE 49 U/L (12-78); ALBUMIN 1.2 G/DL (3.4-5.0); ALBUMIN/GLOBULIN RATIO 0.3 (1.1-1.5); ALKALINE PHOSPHATASE 124 IU/L (46-116); ANION GAP 9 (8-16); ASPARTATE AMINO TRANSFERASE 31 U/L (10-37); BILIRUBIN,TOTAL 0.6 MG/DL (0.1-1.0); BLOOD UREA NITROGEN 43 MG/DL (7-18); BUN/CREATININE RATIO 9.6 (5.4-32.0); CALCIUM 7.2 MG/DL (8.5-10.1); CHLORIDE 101 MMOL/L (99-107); GLUCOSE 128 MG/DL (70-104); PHOSPHORUS 5.9 MG/DL (2.3-4.5); POTASSIUM 4.3 MMOL/L (3.5-5.1); SODIUM 139 MMOL/L (135-145); TOTAL CARBON DIOXIDE 29.5 MMOL/L (24-32); TOTAL PROTEIN 5.6 G/DL (6.4-8.2); eGFR 13 ML/MIN
[2017-06-26] MEDS: ezetimibe 10mg tablet PO SCH (07:19)
[2017-06-26] MEDS: atorvastatin 20mg tablet PO SCH (07:20)
[2017-06-26] MEDS: LACTOBACILLUS RHAMNOSUS GG 15 billion unit sprinkle caps PO SCH (07:20)
[2017-06-26] MEDS: gabapentin 100mg capsule PO SCH (07:20)
[2017-06-26] MEDS: pantoprazole 40mg Tablet.DR PO SCH (07:21)
[2017-06-26] MEDS: buPROPion SR 150mg tablet PO SCH (07:21)
[2017-06-26] MEDS ORDERED: HYDROmorphone inj. 0.5 MG/0.5 ML DISP.SYRIN ONE (09:10)
[2017-06-26] MEDS: insulin Lispro (HumaLOG) vial - multi-dose SQ SCH ×2 (09:33→13:57)
[2017-06-26] MEDS: CefTRIAXone 2gm/NS 100ml IVPB 100 ML IV SCH (09:35)
[2017-06-26] MEDS: HYDROmorphone 1 mg/ml syringe IV PRN (13:59)
[2017-06-26] MEDS: Insulin Detemir pen SQ SCH (20:28)
[2017-06-27] VITALS (20 sets, daily range): BP systolic 152–170; BP diastolic 68–90
[2017-06-27 04:38] LABS: BASOPHILS % (AUTO) 0.3 % (0-1); EOSINOPHILS # (AUTO) 0.1 X10'3 (0-0.9); EOSINOPHILS % (AUTO) 1.8 % (0-6); HEMATOCRIT 24.2 % (42.0-52.0); HEMOGLOBIN 8.2 g/dl (14.0-17.9); LYMPHOCYTES # (AUTO) 1.1 X10'3 (1.1-4.8); LYMPHOCYTES % (AUTO) 14.5 % (21-51); MEAN CORPUSCULAR HEMOGLOBIN 32.2 PG (27.0-31.0); MEAN CORPUSCULAR VOLUME 94.7 FL (78-98); MEAN PLATELET VOLUME 9.4 FL (7.4-10.4); MONOCYTES # (AUTO) 0.3 X10'3 (0-0.9); MONOCYTES % (AUTO) 3.6 % (2-12); NEUTROPHILS # (AUTO) 6.1 X10'3 (1.8-7.7); NEUTROPHILS % (AUTO) 79.8 % (42-75); PLATELET COUNT 194 X10'3 (140-440); RED BLOOD COUNT 2.56 X10'6 (4.70-6.10); RED CELL DISTRIBUTION WIDTH 16.5 % (11.5-14.5); WHITE BLOOD COUNT 7.7 X10'3 (4.5-11.0)
[2017-06-27 04:51] LABS: ALANINE AMINOTRANSFERASE 37 U/L (12-78); ALBUMIN 1.2 G/DL (3.4-5.0); ALBUMIN/GLOBULIN RATIO 0.3 (1.1-1.5); ALKALINE PHOSPHATASE 103 IU/L (46-116); ANION GAP 11 (8-16); ASPARTATE AMINO TRANSFERASE 23 U/L (10-37); BILIRUBIN,TOTAL 0.5 MG/DL (0.1-1.0); BLOOD UREA NITROGEN 53 MG/DL (7-18); BUN/CREATININE RATIO 9.3 (5.4-32.0); CALCIUM 7.3 MG/DL (8.5-10.1); CHLORIDE 100 MMOL/L (99-107); GLUCOSE 90 MG/DL (70-104); MAGNESIUM 2.1 MG/DL (1.5-2.4); PHOSPHORUS 7.1 MG/DL (2.3-4.5); POTASSIUM 4.4 MMOL/L (3.5-5.1); SODIUM 138 MMOL/L (135-145); TOTAL CARBON DIOXIDE 26.6 MMOL/L (24-32); TOTAL PROTEIN 5.5 G/DL (6.4-8.2); eGFR 10 ML/MIN
[2017-06-27] MEDS: HYDROmorphone 1 mg/ml syringe IV PRN ×3 (05:34→17:04)
[2017-06-27] MEDS: buPROPion SR 150mg tablet PO SCH (08:19)
[2017-06-27] MEDS: LACTOBACILLUS RHAMNOSUS GG 15 billion unit sprinkle caps PO SCH (08:20)
[2017-06-27] MEDS: ezetimibe 10mg tablet PO SCH (08:20)
[2017-06-27] MEDS: pantoprazole 40mg Tablet.DR PO SCH (08:21)
[2017-06-27] MEDS: gabapentin 100mg capsule PO SCH (08:21)
[2017-06-27] MEDS: atorvastatin 20mg tablet PO SCH (08:21)
[2017-06-27] MEDS: CefTRIAXone 2gm/NS 100ml IVPB 100 ML IV SCH (08:22)
[2017-06-27] MEDS ORDERED: fentaNYL/PF 50MCG/1 ML 2ML syringe IV PRN (09:15)
[2017-06-27] MEDS ORDERED: heparin 1,000 units/ml 10ml inj ICATH ONE (09:15)
[2017-06-27] MEDS ORDERED: midazolam 2 mg/2 ml injection IV PRN (09:15)
[2017-06-27] MEDS ORDERED: LIDOcaine 1%/PF (10mg/ml) 5ml vial SQ ONE (09:15)
[2017-06-27] MEDS ORDERED: midazolam 2 mg/2 ml injection ONE (09:17)
[2017-06-27] MEDS ORDERED: heparin 1,000unit/ml 10ml vial 10 ML ONE (09:17)
[2017-06-27] MEDS ORDERED: LIDOcaine 1%/PF (10mg/ml) 5ml vial ONE (09:17)
[2017-06-27] MEDS ORDERED: fentaNYL/PF 50MCG/1 ML 2ML syringe ONE (09:18)
[2017-06-27] MEDS ORDERED: heparin 1,000unit/ml 10ml vial 10 ML IV ONE (11:06)
[2017-06-27] MEDS ORDERED: epoetin 20,000 units/ml inj IV ONE (11:10)
[2017-06-27] MEDS ORDERED: heparin 1,000 units/ml 10ml inj IV ONE (11:10)
[2017-06-27] MEDS ORDERED: heparin 1,000 units/ml 10ml inj HE ONE ×2 (11:10)
[2017-06-27] MEDS ORDERED: albumin (human) 25% 100ml IV 100 ML IV PRN (11:10)
[2017-06-27] MEDS ORDERED: HYDROmorphone inj. 0.5 MG/0.5 ML DISP.SYRIN ONE ×2 (12:22→17:02)
[2017-06-27] MEDS: sevelamer carbonate 800mg tablet PO SCH (17:30)
[2017-06-27] MEDS: Insulin Detemir pen SQ SCH (20:31)
[2017-06-28 06:21] LABS: BASOPHILS % (AUTO) 0.5 % (0-1); EOSINOPHILS # (AUTO) 0.1 X10'3 (0-0.9); EOSINOPHILS % (AUTO) 1.4 % (0-6); HEMOGLOBIN 8.5 g/dl (14.0-17.9); LYMPHOCYTES # (AUTO) 0.9 X10'3 (1.1-4.8); LYMPHOCYTES % (AUTO) 10.7 % (21-51); MEAN CORPUSCULAR HEMOGLOBIN 32.2 PG (27.0-31.0); MEAN CORPUSCULAR VOLUME 94.7 FL (78-98); MEAN PLATELET VOLUME 8.9 FL (7.4-10.4); MONOCYTES # (AUTO) 0.4 X10'3 (0-0.9); MONOCYTES % (AUTO) 4.3 % (2-12); NEUTROPHILS # (AUTO) 7.2 X10'3 (1.8-7.7); NEUTROPHILS % (AUTO) 83.1 % (42-75); PLATELET COUNT 235 X10'3 (140-440); RED BLOOD COUNT 2.64 X10'6 (4.70-6.10); WHITE BLOOD COUNT 8.7 X10'3 (4.5-11.0)
[2017-06-28 06:30] VITALS: BP 173/96
[2017-06-28 06:48] LABS: ALANINE AMINOTRANSFERASE 35 U/L (12-78); ALBUMIN 1.2 G/DL (3.4-5.0); ALBUMIN/GLOBULIN RATIO 0.3 (1.1-1.5); ALKALINE PHOSPHATASE 97 IU/L (46-116); ANION GAP 7 (8-16); ASPARTATE AMINO TRANSFERASE 26 U/L (10-37); BILIRUBIN,TOTAL 0.5 MG/DL (0.1-1.0); BLOOD UREA NITROGEN 30 MG/DL (7-18); CALCIUM 7.7 MG/DL (8.5-10.1); CHLORIDE 102 MMOL/L (99-107); GLUCOSE 72 MG/DL (70-104); PHOSPHORUS 6.2 MG/DL (2.3-4.5); POTASSIUM 4.3 MMOL/L (3.5-5.1); SODIUM 138 MMOL/L (135-145); TOTAL PROTEIN 5.8 G/DL (6.4-8.2); eGFR 14 ML/MIN
[2017-06-28] MEDS: buPROPion SR 150mg tablet PO SCH (07:42)
[2017-06-28] MEDS: ezetimibe 10mg tablet PO SCH (07:42)
[2017-06-28] MEDS: atorvastatin 20mg tablet PO SCH (07:43)
[2017-06-28] MEDS: pantoprazole 40mg Tablet.DR PO SCH (07:43)
[2017-06-28] MEDS: CefTRIAXone 2gm/NS 100ml IVPB 100 ML IV SCH (07:43)
[2017-06-28] MEDS: gabapentin 100mg capsule PO SCH (07:43)
[2017-06-28] MEDS: LACTOBACILLUS RHAMNOSUS GG 15 billion unit sprinkle caps PO SCH (07:43)
[2017-06-28] MEDS: sevelamer carbonate 800mg tablet PO SCH ×3 (07:45→17:30)
[2017-06-28] MEDS: dextrose ORAL solution 15 GM/59 ML bottle PO PRN (08:03)
[2017-06-28 11:11] VITALS: BP 139/90
[2017-06-28 18:00] VITALS: BP 157/87
[2017-06-28] MEDS: insulin Lispro (HumaLOG) vial - multi-dose SQ SCH (19:57)
[2017-06-28] MEDS: Insulin Detemir pen SQ SCH (21:40)
[2017-06-28 22:00] VITALS: BP 159/83
[2017-06-28] MEDS: ondansetron/PF 4mg/2ml inj IV PRN (22:02)
[2017-06-29 05:00] VITALS: BP 135/80
[2017-06-29 06:07] LABS: BASOPHILS % (AUTO) 0.3 % (0-1); EOSINOPHILS # (AUTO) 0.1 X10'3 (0-0.9); EOSINOPHILS % (AUTO) 1.7 % (0-6); HEMATOCRIT 22.6 % (42.0-52.0); HEMOGLOBIN 7.9 g/dl (14.0-17.9); LYMPHOCYTES # (AUTO) 0.9 X10'3 (1.1-4.8); LYMPHOCYTES % (AUTO) 12.5 % (21-51); MEAN CORPUSCULAR HEMOGLOBIN 32.6 PG (27.0-31.0); MEAN CORPUSCULAR HGB CONC 35.1 % (33.0-36.5); MEAN CORPUSCULAR VOLUME 92.8 FL (78-98); MEAN PLATELET VOLUME 8.5 FL (7.4-10.4); MONOCYTES # (AUTO) 0.4 X10'3 (0-0.9); MONOCYTES % (AUTO) 5.4 % (2-12); NEUTROPHILS % (AUTO) 80.1 % (42-75); PLATELET COUNT 245 X10'3 (140-440); RED BLOOD COUNT 2.44 X10'6 (4.70-6.10); RED CELL DISTRIBUTION WIDTH 16.3 % (11.5-14.5); WHITE BLOOD COUNT 7.5 X10'3 (4.5-11.0)
[2017-06-29 06:39] LABS: ALANINE AMINOTRANSFERASE 35 U/L (12-78); ALBUMIN 1.2 G/DL (3.4-5.0); ALBUMIN/GLOBULIN RATIO 0.3 (1.1-1.5); ALKALINE PHOSPHATASE 97 IU/L (46-116); ANION GAP 8 (8-16); ASPARTATE AMINO TRANSFERASE 21 U/L (10-37); BILIRUBIN,TOTAL 0.5 MG/DL (0.1-1.0); BLOOD UREA NITROGEN 43 MG/DL (7-18); BUN/CREATININE RATIO 7.8 (5.4-32.0); CALCIUM 7.6 MG/DL (8.5-10.1); CHLORIDE 100 MMOL/L (99-107); GLUCOSE 100 MG/DL (70-104); MAGNESIUM 2.1 MG/DL (1.5-2.4); PHOSPHORUS 7.1 MG/DL (2.3-4.5); POTASSIUM 4.6 MMOL/L (3.5-5.1); SODIUM 136 MMOL/L (135-145); TOTAL PROTEIN 5.9 G/DL (6.4-8.2); eGFR 11 ML/MIN
[2017-06-29] MEDS ORDERED: albumin (human) 25% 100ml IV 100 ML IV PRN (08:15)
[2017-06-29] MEDS ORDERED: heparin 1,000unit/ml 10ml vial 10 ML IV ONE (08:15)
[2017-06-29] MEDS ORDERED: epoetin 20,000 units/ml inj IV ONE (08:15)
[2017-06-29] MEDS ORDERED: heparin 1,000 units/ml 10ml inj HE ONE ×2 (08:20)
[2017-06-29] MEDS: LACTOBACILLUS RHAMNOSUS GG 15 billion unit sprinkle caps PO SCH (08:25)
[2017-06-29] MEDS: pantoprazole 40mg Tablet.DR PO SCH (08:25)
[2017-06-29] MEDS: buPROPion SR 150mg tablet PO SCH (08:26)
[2017-06-29] MEDS: ezetimibe 10mg tablet PO SCH (08:26)
[2017-06-29] MEDS: gabapentin 100mg capsule PO SCH (08:26)
[2017-06-29] MEDS: atorvastatin 20mg tablet PO SCH (08:26)
[2017-06-29] MEDS: sevelamer carbonate 800mg tablet PO SCH ×2 (08:26→12:30)
[2017-06-29] MEDS: CefTRIAXone 2gm/NS 100ml IVPB 100 ML IV SCH (08:40)
[2017-06-29] MEDS: insulin Lispro (HumaLOG) vial - multi-dose SQ SCH ×2 (08:48→13:36)
[2017-06-29 10:00] VITALS: BP 146/70
[2017-06-29] MEDS: acetaminophen 325mg tablet PO PRN (13:33)
== END 2017-06-29 17:00 | DRG 710 ==
LOC: ER 15:16 → ED HOLD 20:02 → ICU 2S 22:00 → SUR 3N 06-22 21:15 → CICU 2S 06-23 15:14 → ORTHO 4S 06-26 11:09
PROVIDERS: ADMIT Internal Medicine Critical Care Medicine; ATTEND Internal Medicine Critical Care Medicine
PROC: 0T7D7ZZ Dilation of Urethra, Via Natural or Artificial Opening (ICD-10-PCS; principal; 2017-06-17)
PROC: 02H633Z Insertion of Infusion Device into Right Atrium, Percutaneous Approach (ICD-10-PCS; 2017-06-17)
PROC: B244ZZZ Ultrasonography of Right Heart (ICD-10-PCS; 2017-06-17)
PROC: 0T9B70Z Drainage of Bladder with Drainage Device, Via Natural or Artificial Opening (ICD-10-PCS; 2017-06-17)
PROC: 5A1D70Z Performance of Urinary Filtration, Intermittent, Less than 6 Hours Per Day (ICD-10-PCS; 2017-06-19)
PROC: 5A1D70Z Performance of Urinary Filtration, Intermittent, Less than 6 Hours Per Day (ICD-10-PCS; 2017-06-20)
PROC: 30233N1 Transfusion of Nonautologous Red Blood Cells into Peripheral Vein, Percutaneous Approach (ICD-10-PCS; 2017-06-21)
PROC: 5A1D70Z Performance of Urinary Filtration, Intermittent, Less than 6 Hours Per Day (ICD-10-PCS; 2017-06-22)
PROC: 0Y6H0Z1 Detachment at Right Lower Leg, High, Open Approach (ICD-10-PCS; 2017-06-23)
PROC: 5A1D70Z Performance of Urinary Filtration, Intermittent, Less than 6 Hours Per Day (ICD-10-PCS; 2017-06-24)
PROC: 0JH60XZ Insertion of Tunneled Vascular Access Device into Chest Subcutaneous Tissue and Fascia, Open Approach (ICD-10-PCS; 2017-06-27)
PROC: 02HV33Z Insertion of Infusion Device into Superior Vena Cava, Percutaneous Approach (ICD-10-PCS; 2017-06-27)
PROC: B5181ZA Fluoroscopy of Superior Vena Cava using Low Osmolar Contrast, Guidance (ICD-10-PCS; 2017-06-27)
PROC: B548ZZA Ultrasonography of Superior Vena Cava, Guidance (ICD-10-PCS; 2017-06-27)
PROC: 5A1D70Z Performance of Urinary Filtration, Intermittent, Less than 6 Hours Per Day (ICD-10-PCS; 2017-06-27)
PROC: 5A1D70Z Performance of Urinary Filtration, Intermittent, Less than 6 Hours Per Day (ICD-10-PCS; 2017-06-29)
DX: A40.0 Sepsis due to streptococcus, group A (principal); I21.4 Non-ST elevation (NSTEMI) myocardial infarction; R65.21 Severe sepsis with septic shock; N17.9 Acute kidney failure, unspecified; M62.82 Rhabdomyolysis; L03.115 Cellulitis of right lower limb; E11.22 Type 2 diabetes mellitus with diabetic chronic kidney disease; N39.0 Urinary tract infection, site not specified; E11.42 Type 2 diabetes mellitus with diabetic polyneuropathy; R62.7 Adult failure to thrive; E78.00 Pure hypercholesterolemia, unspecified; E78.5 Hyperlipidemia, unspecified; E86.0 Dehydration; I12.9 Hypertensive chronic kidney disease with stage 1 through stage 4 chronic kidney disease, or unspecified chronic kidney disease; R33.8 Other retention of urine; N40.1 Benign prostatic hyperplasia with lower urinary tract symptoms; E11.69 Type 2 diabetes mellitus with other specified complication; M86.471 Chronic osteomyelitis with draining sinus, right ankle and foot; N18.9 Chronic kidney disease, unspecified; Z89.512 Acquired absence of left leg below knee; N32.0 Bladder-neck obstruction; F32.9 Major depressive disorder, single episode, unspecified; G89.29 Other chronic pain; R15.9 Full incontinence of feces; R74.0 Nonspecific elevation of levels of transaminase and lactic acid dehydrogenase [LDH]; Z79.899 Other long term (current) drug therapy; Z79.01 Long term (current) use of anticoagulants; Z79.82 Long term (current) use of aspirin
CPT/HCPCS: 36415; 36556; 36558; 36569; 36600; 70450; 71045; 71250; 73700; 74176; 76937; 77001; 80048; 80053; 80202; 80305; 80320; 80329; 81001; 82009; 82140; 82272; 82550; 82553; 82570; 82803; 82810; 82948; 83605; 83735; 84100; 84132; 84145; 84156; 84300; 84439; 84443; 84484; 84540; 85018; 85025; 85610; 85730; 86803; 86870; 86880; 86885; 86900; 86901; 86902; 86905; 86922; 87040; 87070; 87077; 87186; 87340; 92616; 93005; 93306; 94760; 96361; 96365; 96366; 96368; 96375; 97110; 97162; 97530; 99152; 99153; 99291; A4315; A6212; A6213; A6222; A6223; A6253; A6255; A6258; A6402; A6446; A6449; A7000; C1750; C1751; C1758; C1894; C9113; G0257; J0696; J0735; J0885; J1100; J1170; J1265; J1644; J2001; J2020; J2250; J2270; J2405; J2543; J2704; J3010; J3370; J3480; J3490; J7030; J7070; P9016; P9047

== ENCOUNTER 2017-07-27 08:43 | Day surgery (SDC) | payer OTHER ==
[~2017-07-27 08:43] MED LIST changes: -ATOR40TA71 PO; +LIDOcaine 1% 30ml preserv. free vial IJ ONE
[2017-07-27 08:45] VITALS: BP 151/84
[2017-07-27 08:50] VITALS: BP 151/84
== END 2017-07-27 08:50 | disposition home or self-care (01) ==
LOC: SSTAY O 08:43
PROVIDERS: ATTEND Radiology Vascular & Interventional Radiology
DX: Z45.2 Encounter for adjustment and management of vascular access device (principal); I12.9 Hypertensive chronic kidney disease with stage 1 through stage 4 chronic kidney disease, or unspecified chronic kidney disease; N18.6 End stage renal disease; E11.22 Type 2 diabetes mellitus with diabetic chronic kidney disease; E78.5 Hyperlipidemia, unspecified; M62.82 Rhabdomyolysis; N18.9 Chronic kidney disease, unspecified; E11.40 Type 2 diabetes mellitus with diabetic neuropathy, unspecified; F10.21 Alcohol dependence, in remission; K21.9 Gastro-esophageal reflux disease without esophagitis; F32.9 Major depressive disorder, single episode, unspecified; Z99.2 Dependence on renal dialysis; Z79.899 Other long term (current) drug therapy; Z89.511 Acquired absence of right leg below knee; Z89.512 Acquired absence of left leg below knee; Z79.84 Long term (current) use of oral hypoglycemic drugs; Z88.5 Allergy status to narcotic agent; Z90.89 Acquired absence of other organs; Z98.890 Other specified postprocedural states; Z87.891 Personal history of nicotine dependence
CPT/HCPCS: 36589; A6449; J3490

== ENCOUNTER 2018-04-02 10:20 | Emergency (ER) | payer MEDICAID ==
[~2018-04-02] VITALS: Ht 190.5 cm; Wt 79.5 kg
[~2018-04-02 10:20] MED LIST changes: +ASPI-1071 PO; -DILT240C52 PO; -LIDOcaine 1% 30ml preserv. free vial IJ ONE; -METF500T7 PO; +METO25TA6 PO; -METO50TA7 PO; +NITR0.4T51 SL
[2018-04-02 10:22] VITALS: BP 145/79
[2018-04-02] MEDS ORDERED: proparacaine 0.5% ophthalmic drops 15ml EACHEYE ONE (10:45)
[2018-04-02] MEDS ORDERED: ERYT1OIN6 RIGHTEYE (11:21)
== END 2018-04-02 11:32 | disposition home or self-care (01) ==
LOC: ER 10:20
DX: S05.01XA Injury of conjunctiva and corneal abrasion without foreign body, right eye, initial encounter (principal); I10 Essential (primary) hypertension; E78.00 Pure hypercholesterolemia, unspecified; E11.9 Type 2 diabetes mellitus without complications; G89.29 Other chronic pain; M54.9 Dorsalgia, unspecified; Z79.82 Long term (current) use of aspirin; Z88.6 Allergy status to analgesic agent; Z89.512 Acquired absence of left leg below knee; Z89.511 Acquired absence of right leg below knee; X58.XXXA Exposure to other specified factors, initial encounter; Y93.89 Activity, other specified; Y92.89 Other specified places as the place of occurrence of the external cause; Y99.8 Other external cause status
CPT/HCPCS: 99283

== ENCOUNTER 2019-09-20 22:27 | Emergency (ER) | payer MEDICAID ==
[~2019-09-20] VITALS: Ht 188 cm; Wt 81.8 kg
[~2019-09-20 22:27] MED LIST changes: -EZET10TA14 PO; +EZET10TA6 PO
[2019-09-20] MEDS ORDERED: DOXY100C77 PO (23:33)
[2019-09-20] MEDS ORDERED: CEPH-572 PO (23:33)
[2019-09-21 00:03] VITALS: BP 140/89
== END 2019-09-21 00:05 | disposition home or self-care (01) ==
LOC: ER 22:27
DX: L03.113 Cellulitis of right upper limb (principal); E78.00 Pure hypercholesterolemia, unspecified; I10 Essential (primary) hypertension; E11.9 Type 2 diabetes mellitus without complications; B95.62 Methicillin resistant Staphylococcus aureus infection as the cause of diseases classified elsewhere; G89.29 Other chronic pain; F32.9 Major depressive disorder, single episode, unspecified; Z98.890 Other specified postprocedural states; Z88.5 Allergy status to narcotic agent; Z79.82 Long term (current) use of aspirin; Z79.2 Long term (current) use of antibiotics; Z79.899 Other long term (current) drug therapy
CPT/HCPCS: 99283

== ENCOUNTER 2019-10-28 10:24 | Emergency (ER) | payer MEDICAID, MEDICARE ==
[~2019-10-28] VITALS: Ht 188 cm; Wt 84.1 kg
[2019-10-28 10:27] VITALS: BP 152/88
--- NOTE | 2019-10-28 10:38 | NUR ---
Contacted [facility], Case # [id number]. Officer will Respond.
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
[2019-10-28] MEDS ORDERED: LIDOcaine 1% W/epiNEPHrine 1:200,000 10ml vial IJ ONE (11:30)
[2019-10-28] MEDS ORDERED: TETanus/Pertussis (Acell)/Diphther VAC/PF (Tdap-Adult) 0.5ml syringe IMVAC ONE (11:30)
[2019-10-28] MEDS ORDERED: CLIN-14 PO (15:20)
== END 2019-10-28 16:09 | disposition home or self-care (01) ==
LOC: ER 10:24
DX: S02.32XA Fracture of orbital floor, left side, initial encounter for closed fracture (principal); S02.40DA Maxillary fracture, left side, initial encounter for closed fracture; S01.81XA Laceration without foreign body of other part of head, initial encounter; E78.00 Pure hypercholesterolemia, unspecified; I10 Essential (primary) hypertension; E11.9 Type 2 diabetes mellitus without complications; G89.29 Other chronic pain; F32.9 Major depressive disorder, single episode, unspecified; Z98.890 Other specified postprocedural states; Z88.5 Allergy status to narcotic agent; Z79.82 Long term (current) use of aspirin; Z79.899 Other long term (current) drug therapy; X58.XXXA Exposure to other specified factors, initial encounter; Y93.89 Activity, other specified; Y92.89 Other specified places as the place of occurrence of the external cause; Y99.8 Other external cause status
CPT/HCPCS: 12002; 12013; 70450; 70486; 71045; 90471; 90715; 99285

== ENCOUNTER 2019-11-05 21:20 | Inpatient (IN) | payer MEDICAID, MEDICARE ==
[~2019-11-05] VITALS: Ht 190.5 cm; Wt 80.2 kg
[~2019-11-05 21:20] MED LIST changes: +CLIN-14 PO
[2019-11-05 21:53] LABS: BASOPHILS # (AUTO) 0.1 X10'3 (0-0.2); BASOPHILS % (AUTO) 0.7 % (0-1); EOSINOPHILS # (AUTO) 0.4 X10'3 (0-0.9); EOSINOPHILS % (AUTO) 3.6 % (0-6); HEMATOCRIT 40.9 % (42.0-52.0); HEMOGLOBIN 13.5 g/dl (14.0-17.9); LYMPHOCYTES # (AUTO) 3.3 X10'3 (1.1-4.8); LYMPHOCYTES % (AUTO) 33.5 % (21-51); MEAN CORPUSCULAR HEMOGLOBIN 31.9 PG (27.0-31.0); MEAN CORPUSCULAR HGB CONC 33.1 g/dL (33.0-36.5); MEAN CORPUSCULAR VOLUME 96.5 FL (78-98); MEAN PLATELET VOLUME 8.6 FL (7.4-10.4); MONOCYTES # (AUTO) 0.6 X10'3 (0-0.9); MONOCYTES % (AUTO) 5.6 % (2-12); NEUTROPHILS # (AUTO) 5.7 X10'3 (1.8-7.7); NEUTROPHILS % (AUTO) 56.6 % (42-75); PLATELET COUNT 292 X10'3 (140-440); RED BLOOD COUNT 4.24 X10'6 (4.70-6.10); RED CELL DISTRIBUTION WIDTH 13.4 % (11.5-14.5)
[2019-11-05 22:00] LABS: ALANINE AMINOTRANSFERASE 12 U/L (12-78); ALBUMIN 3.1 G/DL (3.4-5.0); ALBUMIN/GLOBULIN RATIO 0.8 (1.1-1.5); ALKALINE PHOSPHATASE 99 IU/L (46-116); ANION GAP 9 (8-16); ASPARTATE AMINO TRANSFERASE 9 U/L (10-37); BILIRUBIN,TOTAL 0.4 MG/DL (0.1-1.0); BLOOD UREA NITROGEN 21 MG/DL (7-18); BUN/CREATININE RATIO 10.6 (5.4-32.0); CALCIUM 8.9 MG/DL (8.5-10.1); CHLORIDE 106 MMOL/L (99-107); CREATININE 1.98 MG/DL (0.60-1.10); GLUCOSE 209 MG/DL (70-104); POTASSIUM 3.9 MMOL/L (3.5-5.1); SODIUM 140 MMOL/L (135-145); TOTAL CARBON DIOXIDE 24.9 MMOL/L (24-32); TOTAL PROTEIN 7.2 G/DL (6.4-8.2); eGFR 34 ML/MIN
[2019-11-05 22:09] LABS: MAGNESIUM 1.9 MG/DL (1.5-2.4); TROPONIN I < 0.04 NG/ML (0.0-0.05)
--- NOTE | 2019-11-05 22:23 | NUR ---
relieving RN for break, pt is resting quietly on gurney, resp even and unlabored, gave pt warm blanket
[2019-11-05] MEDS ORDERED: atropine 0.1mg/ml 10ml syringe IV ONE (22:30)
--- NOTE | 2019-11-05 22:32 | NUR ---
DR MENA AWARE OF HR AND RHYTHM, HOSPITALIST TO ADMIT PT, DR MENA GAVE VERBAL ORDER TO HAVE ATROPINE AT BEDSIDE, REPORT TO DONTE ESCUDERO
--- NOTE | 2019-11-05 22:47 | NUR ---
Asked to review by Classifier Operator for possible admit to floor.
[2019-11-05] MEDS: normal saline 1000ml 1,000 ML IV SCH (22:51)
[2019-11-05] MEDS ORDERED: potassium CL 10mEq/100ml bag 100 ML IV PRN ×2 (22:55)
[2019-11-05] MEDS ORDERED: magnesium Cl slow-release 64mg tablet PO PRN (22:55)
[2019-11-05] MEDS ORDERED: magnesium hydroxide 30ml (MOM) UD suspension PO PRN (22:55)
[2019-11-05] MEDS ORDERED: mag hydrox/Alum hydrox/simeth 30ml oral suspension PO PRN (22:55)
[2019-11-05] MEDS ORDERED: magnesium 4gm in 100ml NS 100 ML IV PRN (22:55)
[2019-11-05] MEDS ORDERED: potassium Cl 20 mEq SR tablet PO PRN (22:55)
[2019-11-05] MEDS ORDERED: bisacodyl 10mg suppository rectal RC PRN (22:55)
[2019-11-05] MEDS ORDERED: ondansetron/PF 4mg/2ml inj IV PRN (22:55)
[2019-11-05] MEDS ORDERED: HYDROcodone/acetaminophen 5mg/325mg tablet PO PRN (22:55)
[2019-11-05] MEDS ORDERED: magnesium 2GM in 50ml NS 50 ML IV PRN (22:55)
[2019-11-05] MEDS ORDERED: acetaminophen 325mg tablet PO PRN (22:55)
[2019-11-05] MEDS ORDERED: MESSAGE TO PHARMACY PO ONE (23:00)
[2019-11-05] MEDS ORDERED: glucagon, human recombinant 1mg kit SUBCUT PRN (23:00)
[2019-11-05] MEDS ORDERED: dextrose ORAL solution 15 GM/59 ML bottle PO PRN ×2 (23:00)
[2019-11-05] MEDS ORDERED: dextrose 50%-water 50ml dispensing syringe IV PRN ×2 (23:00)
[2019-11-05] MEDS ORDERED: insulin Lispro (HumaLOG) vial - multi-dose SQ SCH (23:00)
[2019-11-05 23:29] LABS: HEMOGLOBIN A1C 6.8 % (4.5-6.2)
--- NOTE | 2019-11-05 23:40 | NUR ---
Patient in room ED 10. I have received report from KOTA OCHOA IN ED and had the opportunity to ask questions- PER RN, PATIENT APPEARS "TIRED" YET IS ASYMPTOMATIC AND HAS PROGRESSED FROM NORMAL SINUS RHYTHM TO A 3RD DEGREE HEART BLOCK WHILE IN ER. 1MG ATROPINE ADMINISTERED AND NOW REPORTS HR IS IN THE 40'S. PER RN, PATIENT ARRIVING TO FLOOR WITH RN. WILL PLACE ZOLL AT BEDSIDE AND PAGE ADMITTING HOSPITALIST FOR CLARIFICATION ON PARAMETERS REGARDING HEART RATE AND WHEN TO NOTIFY.
--- NOTE | 2019-11-05 23:46 | NUR ---
PAGER ID: [phone] MESSAGE: EXT. [phone], KOTA PERSON. FOR PATIENT COMING TO [facility] FOR BRADYCARDIA/CP, AT WHAT POINT DO YOU WANT ME TO NOTIFY YOU REGARDING HR? HE ALSO DOESN'T HAVE ANY PRNS SO WE ARE GOING TO PLACE THE ZOLL AT THE BEDSIDE.
[2019-11-05] MEDS ORDERED: atropine 0.1mg/ml 10ml syringe IV PRN (23:50)
--- NOTE | 2019-11-05 23:55 | NUR ---
PATIENT UP TO FLOOR VIA GURNEY. TRANSFERRED TO BED VIA SLIDE BOARD. PATIENT ALERT AND ORIENTED X4, YET COMPLAINS OF DIZZINESS AND FATIGUE. PATIENT BELONGINGS PLACED AT BEDSIDE. PLACED ON SWING SAW OPERATOR 38. PATIENT IS CURRENTLY IN SECOND DEGREE TYPE 1. WILL CONTINUE TO MONITOR CLOSELY.
[2019-11-06 02:00] VITALS: BP 139/78
[2019-11-06 03:47] LABS: BASOPHILS % (AUTO) 0.5 % (0-1); EOSINOPHILS # (AUTO) 0.3 X10'3 (0-0.9); EOSINOPHILS % (AUTO) 4.5 % (0-6); HEMATOCRIT 37.3 % (42.0-52.0); HEMOGLOBIN 12.4 g/dl (14.0-17.9); LYMPHOCYTES # (AUTO) 2.9 X10'3 (1.1-4.8); LYMPHOCYTES % (AUTO) 39.1 % (21-51); MEAN CORPUSCULAR HEMOGLOBIN 31.8 PG (27.0-31.0); MEAN CORPUSCULAR HGB CONC 33.2 g/dL (33.0-36.5); MEAN CORPUSCULAR VOLUME 95.9 FL (78-98); MEAN PLATELET VOLUME 8.7 FL (7.4-10.4); MONOCYTES # (AUTO) 0.4 X10'3 (0-0.9); MONOCYTES % (AUTO) 5.7 % (2-12); NEUTROPHILS # (AUTO) 3.8 X10'3 (1.8-7.7); NEUTROPHILS % (AUTO) 50.2 % (42-75); PLATELET COUNT 242 X10'3 (140-440); RED BLOOD COUNT 3.88 X10'6 (4.70-6.10); RED CELL DISTRIBUTION WIDTH 13.4 % (11.5-14.5); WHITE BLOOD COUNT 7.5 X10'3 (4.5-11.0)
--- NOTE | 2019-11-06 03:53 | NUR ---
PAGER ID: [phone] MESSAGE: Ext. [phone], KOTA Cooper. Patient had 631 ml urine via bladder scan. Patient refuses to urinate and stated, "just stick a tube in my jeff." Can we please get a joshi cath, if not I will just straight cath per protocol. Thank you
[2019-11-06 04:00] LABS: ALANINE AMINOTRANSFERASE 9 U/L (12-78); ALBUMIN 2.6 G/DL (3.4-5.0); ALBUMIN/GLOBULIN RATIO 0.8 (1.1-1.5); ALKALINE PHOSPHATASE 85 IU/L (46-116); ANION GAP 8 (8-16); ASPARTATE AMINO TRANSFERASE 12 U/L (10-37); BILIRUBIN,TOTAL 0.4 MG/DL (0.1-1.0); BLOOD UREA NITROGEN 18 MG/DL (7-18); BUN/CREATININE RATIO 12.1 (5.4-32.0); CALCIUM 7.4 MG/DL (8.5-10.1); CHLORIDE 112 MMOL/L (99-107); CREATININE 1.49 MG/DL (0.60-1.10); GLUCOSE 103 MG/DL (70-104); POTASSIUM 3.2 MMOL/L (3.5-5.1); SODIUM 145 MMOL/L (135-145); eGFR 47 ML/MIN
[2019-11-06 04:04] LABS: MAGNESIUM 1.8 MG/DL (1.5-2.4); PHOSPHORUS 3.1 MG/DL (2.3-4.5)
[2019-11-06 06:00] VITALS: BP 127/81
--- NOTE | 2019-11-06 06:44 | NUR ---
Patient in room PCU 3026. I have received report from Kenneth ESCUDERO and had the opportunity to ask questions and assume patient care.
--- NOTE | 2019-11-06 06:53 | NUR ---
Problems reprioritized. Patient report given, questions answered & plan of care reviewed with KOTA DIANE.
[2019-11-06] MEDS: potassium Cl 20 mEq SR tablet PO PRN ×3 (07:31→16:47)
[2019-11-06] MEDS: gabapentin 300mg capsule PO SCH ×3 (07:31→19:11)
[2019-11-06] MEDS: docusate sod 100mg capsule PO SCH ×2 (07:31→19:12)
[2019-11-06] MEDS: aspirin 81mg tablet.DR PO SCH (07:31)
[2019-11-06] MEDS: atorvastatin 20mg tablet PO SCH (07:32)
[2019-11-06] MEDS: buPROPion SR 150mg tablet PO SCH ×2 (07:32→19:12)
[2019-11-06] MEDS: K and/or MAG REPLACEMENT MC SCH ×2 (08:00→20:00)
[2019-11-06] MEDS: normal saline 1000ml 1,000 ML IV SCH ×2 (09:11→19:23)
[2019-11-06] MEDS ORDERED: OMEP-50 PO (10:31)
[2019-11-06] MEDS ORDERED: GLIP5TAB13 PO (10:31)
[2019-11-06] MEDS ORDERED: METF-436 PO (10:31)
[2019-11-06] MEDS ORDERED: METO-384 PO (10:31)
[2019-11-06] MEDS ORDERED: DILT240C51 PO (10:31)
[2019-11-06 11:00] VITALS: BP 171/80
--- NOTE | 2019-11-06 11:33 | NUR ---
Paged Dr. Lopez. BLL,SRx2,CL in reach,non-stick socks,frequent rounds, patient sleeping
[2019-11-06] MEDS ORDERED: lisinopril 20mg tablet PO PRN (11:40)
[2019-11-06 15:00] VITALS: BP 137/71
--- NOTE | 2019-11-06 15:05 | NUR ---
PAGER ID: [phone] MESSAGE: RM 3026 HR DOWN TO 35. 2ND DEG TYPE 1 HB. BP 126/65. PT REPORTS DIZZINESS, PLAN???
[2019-11-06 18:00] VITALS: BP 155/72
--- NOTE | 2019-11-06 18:13 | NUR ---
Problems reprioritized. Patient report given, questions answered & plan of care reviewed with Jeri ESCUDERO.
--- NOTE | 2019-11-06 18:20 | NUR ---
Problems reprioritized. Patient report given, questions answered & plan of care reviewed with Floyd RN.
--- NOTE | 2019-11-06 18:32 | NUR ---
Patient in room PCU 3026. I have received report from KOTA Gannon and had the opportunity to ask questions and assume patient care.
[2019-11-06] MEDS ORDERED: insulin glargine (Lantus) pen - multi-dose SQ SCH (21:00)
[2019-11-06 22:00] VITALS: BP 138/76
[2019-11-07 02:00] VITALS: BP 158/82
[2019-11-07] MEDS: normal saline 1000ml 1,000 ML IV SCH (03:55)
[2019-11-07 05:27] LABS: BASOPHILS % (AUTO) 0.3 % (0-1); EOSINOPHILS # (AUTO) 0.4 X10'3 (0-0.9); EOSINOPHILS % (AUTO) 4.9 % (0-6); HEMATOCRIT 38.9 % (42.0-52.0); LYMPHOCYTES # (AUTO) 2.9 X10'3 (1.1-4.8); LYMPHOCYTES % (AUTO) 34.6 % (21-51); MEAN CORPUSCULAR HEMOGLOBIN 32.2 PG (27.0-31.0); MEAN CORPUSCULAR HGB CONC 33.4 g/dL (33.0-36.5); MEAN CORPUSCULAR VOLUME 96.7 FL (78-98); MEAN PLATELET VOLUME 8.8 FL (7.4-10.4); MONOCYTES # (AUTO) 0.5 X10'3 (0-0.9); MONOCYTES % (AUTO) 5.5 % (2-12); NEUTROPHILS # (AUTO) 4.5 X10'3 (1.8-7.7); NEUTROPHILS % (AUTO) 54.7 % (42-75); PLATELET COUNT 245 X10'3 (140-440); RED BLOOD COUNT 4.03 X10'6 (4.70-6.10); RED CELL DISTRIBUTION WIDTH 13.3 % (11.5-14.5); WHITE BLOOD COUNT 8.3 X10'3 (4.5-11.0)
[2019-11-07 05:57] LABS: ALANINE AMINOTRANSFERASE 9 U/L (12-78); ALBUMIN 2.6 G/DL (3.4-5.0); ALBUMIN/GLOBULIN RATIO 0.7 (1.1-1.5); ALKALINE PHOSPHATASE 87 IU/L (46-116); ANION GAP 5 (8-16); ASPARTATE AMINO TRANSFERASE 9 U/L (10-37); BILIRUBIN,TOTAL 0.3 MG/DL (0.1-1.0); BLOOD UREA NITROGEN 20 MG/DL (7-18); BUN/CREATININE RATIO 13.1 (5.4-32.0); CALCIUM 8.5 MG/DL (8.5-10.1); CHLORIDE 109 MMOL/L (99-107); CREATININE 1.53 MG/DL (0.60-1.10); GLUCOSE 143 MG/DL (70-104); MAGNESIUM 1.9 MG/DL (1.5-2.4); PHOSPHORUS 3.3 MG/DL (2.3-4.5); POTASSIUM 4.9 MMOL/L (3.5-5.1); SODIUM 142 MMOL/L (135-145); TOTAL CARBON DIOXIDE 27.8 MMOL/L (24-32); TOTAL PROTEIN 6.3 G/DL (6.4-8.2); eGFR 46 ML/MIN
--- NOTE | 2019-11-07 06:33 | NUR ---
Problems reprioritized. Patient report given, questions answered & plan of care reviewed with KOTA Ivy.
[2019-11-07 07:00] VITALS: BP 142/90
--- NOTE | 2019-11-07 07:19 | NUR ---
Patient in room PCU 3026. I have received report from Cynthia ESCUDERO and had the opportunity to ask questions and assume patient care.
[2019-11-07] MEDS: K and/or MAG REPLACEMENT MC SCH (08:00)
[2019-11-07] MEDS: gabapentin 300mg capsule PO SCH (08:03)
[2019-11-07] MEDS: docusate sod 100mg capsule PO SCH (08:04)
[2019-11-07] MEDS: aspirin 81mg tablet.DR PO SCH (08:04)
[2019-11-07] MEDS: atorvastatin 20mg tablet PO SCH (08:04)
[2019-11-07] MEDS: buPROPion SR 150mg tablet PO SCH (08:04)
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
--- NOTE | 2019-11-07 10:59 | NUR ---
MD at bedside educating patient regarding possible need for pacemaker. Pt. started yelling and stated,"Im not getting a pacemaker, let me go home, I want to at home, im not getting a pacemaker." MD explained risks, discharge orders written. CM notified to arrange a ride.
--- NOTE | 2019-11-07 11:45 | NUR ---
Clark catheter removed, pending ride garbage pick up man at 1300, urinal provided to patient and encouraged to use. PIV and tele still in place at this time. Patient strongly encouraged to follow up with his primary MD regarding staple removal. Patient verbalized understanding. Patient was recommended for a pacemaker and he declined and declined needing an appointment with [facility]. Patient has been non compliant. CP in place.
--- NOTE | 2019-11-07 12:40 | NUR ---
patient declined blood sugar check, also pt. has yet to void but does not care stating, "I pee fine." Educated on RBC's. Patient is non compliant with care. aware.
--- NOTE | 2019-11-07 13:19 | NUR ---
Patient was cleared to discharge, all discharge instructions and medications reviewed with the patient several times. Patient declined wanting the nurse to arrange a follow up appointment with cardiology and stated he will set his own appointment for the [facility]. OSCAR GEORGES'gianna. Tele removed. Patient wheeled to the lobby for turkey picker by "Jules."
== END 2019-11-07 13:05 | disposition home or self-care (01) | DRG 203 ==
LOC: ER 21:20 → ED HOLD 22:51 → UNDOADMIN 23:33 → PCU 3S 11-06 00:31 → ED HOLD 11-06 00:31
PROVIDERS: ADMIT Family Medicine; ATTEND Internal Medicine
DX: R07.89 Other chest pain (principal); I44.2 Atrioventricular block, complete; N17.9 Acute kidney failure, unspecified; E11.22 Type 2 diabetes mellitus with diabetic chronic kidney disease; E78.00 Pure hypercholesterolemia, unspecified; E78.5 Hyperlipidemia, unspecified; I12.9 Hypertensive chronic kidney disease with stage 1 through stage 4 chronic kidney disease, or unspecified chronic kidney disease; F32.9 Major depressive disorder, single episode, unspecified; G89.29 Other chronic pain; M54.9 Dorsalgia, unspecified; R03.0 Elevated blood-pressure reading, without diagnosis of hypertension; N18.3 Chronic kidney disease, stage 3 (moderate); Z79.82 Long term (current) use of aspirin; Z79.84 Long term (current) use of oral hypoglycemic drugs; Z89.511 Acquired absence of right leg below knee; Z89.512 Acquired absence of left leg below knee; Z79.899 Other long term (current) drug therapy; Z88.5 Allergy status to narcotic agent; S02.40FD Zygomatic fracture, left side, subsequent encounter for fracture with routine healing; S02.40DD Maxillary fracture, left side, subsequent encounter for fracture with routine healing
CPT/HCPCS: 36415; 70450; 71045; 80053; 82948; 83036; 83735; 83880; 84100; 84484; 85025; 87081; 93005; 93308; 96374; 97110; 97112; 97161; 97530; 99285; G0378; J0461; J1815; J7030

== ENCOUNTER 2020-08-08 11:18 | Emergency (ER) | payer MEDICAID ==
[~2020-08-08] VITALS: Ht 190.5 cm; Wt 68.2 kg
[~2020-08-08 11:18] MED LIST changes: -CLIN-14 PO; +GLIP5TAB13 PO; +LISI10TA27 PO; -LISI10TA4 PO; +METF-436 PO; -METO25TA6 PO; +OMEP-50 PO; -SITA100T11 PO
[2020-08-08 11:21] VITALS: BP 143/98
[2020-08-08] MEDS ORDERED: DOXY100C2 PO (12:29)
== END 2020-08-08 12:32 | disposition home or self-care (01) ==
LOC: ER 11:18
DX: L02.811 Cutaneous abscess of head [any part, except face] (principal); E78.00 Pure hypercholesterolemia, unspecified; I10 Essential (primary) hypertension; E11.9 Type 2 diabetes mellitus without complications; G89.29 Other chronic pain; Z87.81 Personal history of (healed) traumatic fracture; Z98.890 Other specified postprocedural states; Z86.718 Personal history of other venous thrombosis and embolism; Z88.6 Allergy status to analgesic agent; Z79.82 Long term (current) use of aspirin; Z79.899 Other long term (current) drug therapy
CPT/HCPCS: 99284